=== PATIENT | male | born 1970 | race Caucasian/White ===

== ENCOUNTER 2018-06-02 06:45 | Day surgery (SDC) | payer OTHER ==
[2018-06-02] MEDS ORDERED: NACL 0.9% 1000 ML 1,000 ML IV SCH (08:00)
[2018-06-02] MEDS ORDERED: DIPRIVAN 10 MG/ML IV ONE ×2 (08:23)
[2018-06-02] MEDS ORDERED: VERSED ONE (08:23)
--- NOTE | 2018-06-02 08:57 | Anesthesia Day of Surgery ---
Anesthesia Day of Surgery - Day of Surgery Patient Examined: Yes Patient H&P Reviewed: Yes Patient is NPO: Yes
--- NOTE | 2018-06-02 08:59 | Anesthesia Consultation ---
Anesthesia Consult and Med Hx Date of service: 06/02/18 - Airway Anesthetic Teeth Evaluation: Good ROM Head & Neck: Adequate Mental/Hyoid Distance: Adequate Mallampati Class: Class III Intubation Access Assessment: Possibly Difficult - Pre-Operative Health Status ASA Pre-Surgery Classification: ASA3 Proposed Anesthetic Plan: MAC - Pulmonary Hx Smoking: Yes Hx Sleep Apnea: Yes - Cardiovascular System Hx Hypertension: Yes (high cholesterol) - Central Nervous System CVA: Yes - Endocrine Hx Liver Disease: Yes (fatty liver) - Other Systems Hx Obesity: Yes
--- NOTE | 2018-06-02 09:05 | Short Stay Summary ---
Short Stay Documentation - Allergies and Medications Current Medications: Allergies No Known Allergies Allergy (Verified 06/01/18 15:03) Home Medications Medication Instructions Recorded Confirmed Last Taken Type Gabapentin 300 mg PO DAILY 06/01/18 06/01/18 Unknown History Lisinopril 1 tab PO DAILY 06/01/18 06/01/18 Unknown History amLODIPine 1 tab PO DAILY 06/01/18 06/01/18 Unknown History Active Medications Sodium Chloride (Nacl 0.9% 1000 Ml) 1,000 mls @ 50 mls/hr IV DIRECT MICHAEL - Brief post op/procedure progress note Date of procedure: 06/02/18 Pre-op diagnosis: 1. Colon cancer screening 2. Abdominal pain Post-op diagnosis: same (1. Colonoscopy aborted due to a poor prep 2. internal hemorrhoids) Procedure: Incomplete colonoscopy due to a poor prep Anesthesia: MAC Findings: as above Surgeon: KYLE PETERS Estimated blood loss: none Pathology: none Condition: stable - Disposition Condition at discharge: Stable Disposition: DC-01 TO HOME OR SELFCARE Short Stay Discharge Plan Activity: no restrictions Weight Bearing Status: Full Weight Bearing Diet: regular, low salt Follow up with: SUSAN CUNNINGHAM NP [Primary Care Provider] - 7 Days
[2018-06-02 09:30] VITALS: BP 104/68
[2018-06-02] MEDS ORDERED: WATER FOR IRRIG STERILE IR ONE (11:29)
== END 2018-06-02 06:46 | disposition home or self-care (01) ==
LOC: GIO 06:45
PROVIDERS: ATTEND Internal Medicine Gastroenterology
DX: K29.50 Unspecified chronic gastritis without bleeding (principal); K64.0 First degree hemorrhoids; K21.9 Gastro-esophageal reflux disease without esophagitis; D13.1 Benign neoplasm of stomach; R19.7 Diarrhea, unspecified; K92.1 Melena; R10.30 Lower abdominal pain, unspecified; F17.210 Nicotine dependence, cigarettes, uncomplicated; E78.00 Pure hypercholesterolemia, unspecified; G47.30 Sleep apnea, unspecified; M19.90 Unspecified osteoarthritis, unspecified site; F32.9 Major depressive disorder, single episode, unspecified; F41.9 Anxiety disorder, unspecified; R97.0 Elevated carcinoembryonic antigen [CEA]; I10 Essential (primary) hypertension; E66.9 Obesity, unspecified; Z68.31 Body mass index [BMI] 31.0-31.9, adult; Z90.49 Acquired absence of other specified parts of digestive tract; Z79.01 Long term (current) use of anticoagulants; Z79.899 Other long term (current) drug therapy; Z98.890 Other specified postprocedural states; Z86.73 Personal history of transient ischemic attack (TIA), and cerebral infarction without residual deficits
CPT/HCPCS: 43239; 45378; 88305; 88342; J2250; J2704; J7030

== ENCOUNTER 2019-03-07 13:15 | Inpatient (IN) | payer OTHER ==
[2019-03-07] MEDS ORDERED: NACL 0.9% 1000 ML 1,000 ML ONE (14:24)
[2019-03-07] MEDS ORDERED: HALDOL IM STA (14:49)
[2019-03-07] MEDS ORDERED: NACL 0.9% 1000 ML 2,000 ML IV ONE ×2 (14:49→16:14)
[2019-03-07] MEDS ORDERED: SUBLIMAZE IV ONE (14:49)
[2019-03-07] MEDS ORDERED: NACL 0.9% 1000 ML 1,000 ML IV ONE ×2 (14:49)
[2019-03-07] MEDS ORDERED: BOOSTRIX IM ONE (14:50)
--- NOTE | 2019-03-07 14:57 | Emergency Department Report ---
ED General Adult HPI - General Chief complaint: Syncope Stated complaint: SYNCOPE Time Seen by Provider: 03/07/19 14:20 Source: patient, family, EMS ( EMS documentation not available at time of chart dictation ), RN notes reviewed Mode of arrival: Wheelchair Limitations: No Limitations - History of Present Illness Initial comments: Primary care Dr.: Dr. Sanchez Past medical history: Obesity, cannabis use, patient cannot recall what his long-term outpatient prescriptions are He may have a history of hypertension. The patient presents to the ER today with a complaint of sudden painless loss of consciousness while taking a shower. He reports that over the past few days, he's had diffuse abdominal cramping, and he was seen at another hospital, and presumptively diagnosed with cannabinoid hyperemesis syndrome. He reports that he's been taking frequent hot baths and hot showers, to provide supportive control, and symptomatic relief. Today, he was taking a shower, and reportedly lost consciousness. Prior to the shower, he was not having any physical pain. After the shower, he has left flank pain, diffuse paraspinal pain, left elbow pain, and bilateral wrist pain. He can't recall his last tetanus vaccination. There is no midline cervical spine pain. He denies lower extremity weakness and numbness. In the emergency room, he was initially anxious, , and hypotensive. Symptoms improved with IV fluids and haloperidol. -: Gradual, Sudden Severity scale (0 -10): 0 Quality: aching Consistency: intermittent Improves with: other Worsens with: other - Related Data Home Medications Medication Instructions Recorded Confirmed Last Taken Lisinopril 1 tab PO DAILY 06/01/18 03/07/19 03/07/19 amLODIPine 1 tab PO DAILY 06/01/18 03/07/19 03/07/19 Allergies Allergy/AdvReac Type Severity Reaction Status Date / Time No Known Allergies Allergy Verified 06/01/18 15:03 ED Review of Systems ROS: Stated complaint: SYNCOPE Other details as noted in HPI Constitutional: malaise, weakness Eyes: denies: eye discharge ENT: denies: congestion Respiratory: denies: wheezing Cardiovascular: syncope Gastrointestinal: abdominal pain, nausea, vomiting Genitourinary: denies: dysuria Musculoskeletal: back pain, arthralgia, myalgia Skin: lesions Neurological: weakness Psychiatric: anxiety ED Past Medical Hx - Past Medical History Previous Medical History?: Yes Hx Hypertension: Yes (high cholesterol) Hx GERD: Yes Hx Liver Disease: Yes (fatty liver) Hx Arthritis: Yes - Surgical History Past Surgical History?: Yes Hx Appendectomy: Yes - Social History Smoking Status: Current Every Day Smoker - Medications Home Medications: Home Medications Medication Instructions Recorded Confirmed Last Taken Type Lisinopril 1 tab PO DAILY 06/01/18 03/07/19 03/07/19 History amLODIPine 1 tab PO DAILY 06/01/18 03/07/19 03/07/19 History ED Physical Exam - General Limitations: No Limitations General appearance: alert, anxious, obese - Head Head exam: Present: atraumatic, normocephalic - Eye Eye exam: Present: normal appearance, PERRL, EOMI, other (visual acuity intact to finger counting and color perception at a close distance). Absent: nystagmus - ENT ENT exam: Present: normal exam, normal orophraynx, mucous membranes moist, normal external ear exam - Neck Neck exam: Present: normal inspection, full ROM. Absent: tenderness, meningismus - Respiratory Respiratory exam: Present: normal lung sounds bilaterally, chest wall tenderness, other (there is left lateral distal hemithorax tenderness, with ecc hymosis noted). Absent: respiratory distress - Cardiovascular Cardiovascular Exam: Present: regular rate, normal rhythm, normal heart sounds. Absent: bradycardia, tachycardia, irregular rhythm, systolic murmur, diastolic murmur, rubs, gallop - GI/Abdominal GI/Abdominal exam: Present: soft, tenderness (there is mild diffuse abdominal tenderness noted, with no rebound, guarding or peritoneal signs). Absent: guarding, rebound, rigid - Rectal Rectal exam: Present: deferred - Extremities Exam Extremities exam: Present: normal inspection (there is no ulnar styloid process tenderness noted. There is no snuffbox tenderness noted. Abrasion noted to right wrist. Abrasion noted to left elbow.), full ROM, other (2+ pulses noted in the bilateral upper, lower extremities. There is no long bone tenderness. Musculoskeletal compartments are soft. The pelvis is stable.) - Back Exam Back exam: Present: normal inspection, full ROM, paraspinal tenderness. Absent: tenderness, CVA tenderness (R) - Neurological Exam Neurological exam: Present: alert, other (there is no facial droop. The tongue is midline. Extraocular movements are intact bilaterally. Patient speaking in full complete sentences. Shoulder shrug is intact bilaterally. Hearing is grossly intact bilaterally. Visual acuity intact to finger counting and color perception at a close distance. 5/5 strength 4 extremities. Sensation intact to light touch in 4 extremities.) - Psychiatric Psychiatric exam: Present: anxious - Skin Skin exam: Present: warm, abrasion, ecchymosis ED Course Vital Signs 03/07/19 03/07/19 03/07/19 13:58 14:12 14:27 Temperature 97.6 F Pulse Rate 103 H 97 H Respiratory 18 25 H 18 Rate Blood Pressure 88/60 Blood Pressure [Right] O2 Sat by Pulse 96 Oximetry 03/07/19 03/07/19 14:28 17:33 Temperature 98.4 F Pulse Rate 93 H 66 Respiratory 20 20 Rate Blood Pressure Blood Pressure 86/52 105/58 [Right] O2 Sat by Pulse 99 96 Oximetry - Reevaluation(s) Reevaluation #1: 03/07/19 16:12 Original diagnosis, including not limited to: Orthostasis, vagal event, dehydration, structural cardiac disease, superficial contusions and abrasions, intra-abdominal injury, intracranial injury Assessment and plan: 48-year-old gentleman, with reported history of abdominal pain, nausea and vomiting, likely secondary to cannabinoid hyperemesis syndrome, who was in the shower for symptomatically relief, who then had loss of consciousness, likely a vagal event, with hypotension initially, now improving. Blood pressure in the 80s initially, now in the low 100s. He is receiving 4 L of IV fluids. He received pain medication, and haloperidol. X-ray show no acute fracture. He reports no DVT or pulmonary embolism risk factors, and he is low risk by well's criteria. Laboratory studies demonstrate dehydration, acute renal insufficiency, type II troponin leak, metabolic acidosis. Suspect prerenal insufficiency, likely secondary to intractable nausea and vomiting, likely secondary to presumed cannabinoid hyperemesis syndrome.Patient is clinically sober at this time. The cervical spine is cleared through nexus and brazilian c spine rule CT scan brain, abdomen pelvis pending at this time. Patient meets criteria for hospitalization for the aforementioned derangement. Reevaluation #2: 03/07/19 16:14 Leukocytosis is reviewed and appreciated. Patient demonstrates signs of he moconcentration, and this is likely a stress reaction. Do not suspect acute bacterial illness at this time, therefore, we will withhold antibiotic therapy at this time. Laboratory studies show renal insufficiency. This is likely prerenal renal insufficiency. Elevated troponin is reviewed and appreciated. This is most likely a type II troponin leak, likely secondary to the aforementioned. 03/07/19 18:02 Reevaluation #3: 03/07/19 18:[address] scan of the brain is negative for acute disease. Discussed plan of care for admission with patient who verbalizes understanding. He is amenable to this plan of care. The case is presented to Dr Ollie Moise who accepts to his service ED Medical Decision Making - Lab Data Result diagrams: 03/07/19 15:14 03/07/19 15:14 Vital Signs 03/07/19 03/07/19 03/07/19 13:58 14:12 14:27 Temperature 97.6 F Pulse Rate 103 H 97 H Respiratory 18 25 H 18 Rate Blood Pressure 88/60 Blood Pressure [Right] O2 Sat by Pulse 96 Oximetry 03/07/19 14:28 Temperature Pulse Rate 93 H Respiratory 20 Rate Blood Pressure Blood Pressure 86/52 [Right] O2 Sat by Pulse 99 Oximetry Lab Results 03/07/19 03/07/19 03/07/19 Range/Units 14:40 15:14 15:14 WBC 17.7 H (4.5-11.0) K/mm3 RBC 6.80 H (3.65-5.03) M/mm3 Hgb 19.6 H (11.8-15.2) gm/dl Hct 57.6 H (35.5-45.6) % MCV 85 (84-94) fl MCH 29 (28-32) pg MCHC 34 (32-34) % RDW 14.4 (13.2-15.2) % Plt Count 392 (140-440) K/mm3 Lymph % (Auto) 9.7 L (13.4-35.0) % [place] % (Auto) 9.3 H (0.0-7.3) % Eos % (Auto) 0.2 (0.0-4.3) % Baso % (Auto) 0.4 (0.0-1.8) % Lymph # 1.7 (1.2-5.4) K/mm3 [place] # 1.6 H (0.0-0.8) K/mm3 Eos # 0.0 (0.0-0.4) K/mm3 Baso # 0.1 (0.0-0.1) K/mm3 Seg Neutrophils % 80.4 H (40.0-70.0) % Seg Neutrophils # 14.2 H (1.8-7.7) K/mm3 PT (12.2-14.9) Sec. INR (0.87-1.13) APTT (24.2-36.6) Sec. Sodium 136 L (137-145) mmol/L Potassium 3.3 L (3.6-5.0) mmol/L Chloride 93.4 L (98-107) mmol/L Carbon Dioxide 14 L (22-30) mmol/L Anion Gap 32 mmol/L BUN 49 H (9-20) mg/dL Creatinine 6.7 H (0.8-1.5) mg/dL Estimated GFR 9 ml/min BUN/Creatinine Ratio 7 % Glucose 120 H (75-100) mg/dL POC Glucose 116 H (70-105) Calcium 10.1 (8.4-10.2) mg/dL Magnesium (1.7-2.3) mg/dL Total Bilirubin 1.00 (0.1-1.2) mg/dL ALT 32 (7-56) units/L Alkaline Phosphatase 94 (35-129) units/L Troponin T 0.064 H (0.00-0.029) ng/mL Total Protein 9.2 H (6.3-8.2) g/dL Albumin 5.2 H (3.9-5) g/dL Albumin/Globulin Ratio 1.3 % Triglycerides 286 H (2-149) mg/dL Cholesterol 272 H (50-199) mg/dL LDL Cholesterol Direct 201 H (50-130) mg/dL HDL Cholesterol 34 L (40-59) mg/dL Cholesterol/HDL Ratio 8.00 % Lipase 38 (13-60) units/L Salicylates (2.8-20.0) mg/dL Plasma/Serum Alcohol (0-0.07) % 03/07/19 03/07/19 03/07/19 Range/Units 15:14 15:14 15:14 WBC (4.5-11.0) K/mm3 RBC (3.65-5.03) M/mm3 Hgb (11.8-15.2) gm/dl Hct (35.5-45.6) % MCV (84-94) fl MCH (28-32) pg MCHC (32-34) % RDW (13.2-15.2) % Plt Count (140-440) K/mm3 Lymph % (Auto) (13.4-35.0) % [place] % (Auto) (0.0-7.3) % Eos % (Auto) (0.0-4.3) % Baso % (Auto) (0.0-1.8) % Lymph # (1.2-5.4) K/mm3 [place] # (0.0-0.8) K/mm3 Eos # (0.0-0.4) K/mm3 Baso # (0.0-0.1) K/mm3 Seg Neutrophils % (40.0-70.0) % Seg Neutrophils # (1.8-7.7) K/mm3 PT 14.3 (12.2-14.9) Sec. INR 1.14 H (0.87-1.13) APTT 33.9 (24.2-36.6) Sec. Sodium (137-145) mmol/L Potassium (3.6-5.0) mmol/L Chloride (98-107) mmol/L Carbon Dioxide (22-30) mmol/L Anion Gap mmol/L BUN (9-20) mg/dL Creatinine (0.8-1.5) mg/dL Estimated GFR ml/min BUN/Creatinine Ratio % Glucose (75-100) mg/dL POC Glucose (70-105) Calcium (8.4-10.2) mg/dL Magnesium 3.00 H (1.7-2.3) mg/dL Total Bilirubin (0.1-1.2) mg/dL ALT (7-56) units/L Alkaline Phosphatase (35-129) units/L Troponin T (0.00-0.029) ng/mL Total Protein (6.3-8.2) g/dL Albumin (3.9-5) g/dL Albumin/Globulin Ratio % Triglycerides (2-149) mg/dL Cholesterol (50-199) mg/dL LDL Cholesterol Direct (50-130) mg/dL HDL Cholesterol (40-59) mg/dL Cholesterol/HDL Ratio % Lipase (13-60) units/L Salicylates (2.8-20.0) mg/dL Plasma/Serum Alcohol < 0.01 (0-0.07) % 03/07/19 Range/Units 15:14 WBC (4.5-11.0) K/mm3 RBC (3.65-5.03) M/mm3 Hgb (11.8-15.2) gm/dl Hct (35.5-45.6) % MCV (84-94) fl MCH (28-32) pg MCHC (32-34) % RDW (13.2-15.2) % Plt Count (140-440) K/mm3 Lymph % (Auto) (13.4-35.0) % [place] % (Auto) (0.0-7.3) % Eos % (Auto) (0.0-4.3) % Baso % (Auto) (0.0-1.8) % Lymph # (1.2-5.4) K/mm3 [place] # (0.0-0.8) K/mm3 Eos # (0.0-0.4) K/mm3 Baso # (0.0-0.1) K/mm3 Seg Neutrophils % (40.0-70.0) % Seg Neutrophils # (1.8-7.7) K/mm3 PT (12.2-14.9) Sec. INR (0.87-1.13) APTT (24.2-36.6) Sec. Sodium (137-145) mmol/L Potassium (3.6-5.0) mmol/L Chloride (98-107) mmol/L Carbon Dioxide (22-30) mmol/L Anion Gap mmol/L BUN (9-20) mg/dL Creatinine (0.8-1.5) mg/dL Estimated GFR ml/min BUN/Creatinine Ratio % Glucose (75-100) mg/dL POC Glucose (70-105) Calcium (8.4-10.2) mg/dL Magnesium (1.7-2.3) mg/dL Total Bilirubin (0.1-1.2) mg/dL ALT (7-56) units/L Alkaline Phosphatase (35-129) units/L Troponin T (0.00-0.029) ng/mL Total Protein (6.3-8.2) g/dL Albumin (3.9-5) g/dL Albumin/Globulin Ratio % Triglycerides (2-149) mg/dL Cholesterol (50-199) mg/dL LDL Cholesterol Direct (50-130) mg/dL HDL Cholesterol (40-59) mg/dL Cholesterol/HDL Ratio % Lipase (13-60) units/L Salicylates < 0.3 L (2.8-20.0) mg/dL Plasma/Serum Alcohol (0-0.07) % - EKG Data -: EKG Interpreted by Me EKG shows normal: sinus rhythm Rate: normal - EKG Data 03/07/19 16:14 There is no prior EKG available for comparison. This is a sinus rhythm, 81 bpm, motion artifact, there is high left ventricular voltage, the QTC is within normal limits, there is nonspecific ST abnormality, there is no endorsement of chest pain, the EKG is abnormal, the EKG is not consistent with ST elevation myocardial infarction. - Radiology Data Radiology results: pending, report reviewed, image reviewed Critical care attestation.: If time is entered above; I have spent that time in minutes in the direct care of this critically ill patient, excluding procedure time. ED Disposition Clinical Impression: TOPHER (acute kidney injury), History of syncope, Metabolic acidosis, Cannabinoid hyperemesis syndrome Disposition: -09 OP ADMIT IP TO THIS HOSP Is pt being admited?: Yes Condition: Serious Referrals: PRIMARY CARE, [Primary Care Provider] - 3-5 Days
[2019-03-07 15:35] LABS: Basophils # (Auto) 0.1 K/mm3 (0.0-0.1); Basophils % (Auto) 0.4 % (0.0-1.8); Eosinophils % (Auto) 0.2 % (0.0-4.3); Hematocrit 57.6 % (35.5-45.6); Hemoglobin 19.6 gm/dl (11.8-15.2); Lymphocytes # (Auto) 1.7 K/mm3 (1.2-5.4); Lymphocytes % (Auto) 9.7 % (13.4-35.0); Mean Corpuscular HGB Conc 34 % (32-34); Mean Corpuscular Volume 85 fl (84-94); Monocytes # (Auto) 1.6 K/mm3 (0.0-0.8); Monocytes % (Auto) 9.3 % (0.0-7.3); Platelet Count 392 K/mm3 (140-440); Red Cell Distribution Width 14.4 % (13.2-15.2)
--- NOTE | 2019-03-07 15:46 | XRay Report ---
CHEST 1 VIEW INDICATION / CLINICAL INFORMATION: syncop. COMPARISON: None available. FINDINGS: SUPPORT DEVICES: None. HEART / MEDIASTINUM: No significant abnormality. LUNGS / PLEURA: No significant pulmonary or pleural abnormality. No pneumothorax. ADDITIONAL FINDINGS: No significant additional findings. IMPRESSION: No acute pulmonary or pleural abnormality. Signer Name: Leodan Siu MD FACR Signed: 03/07/2019 3:42 PM Workstation Name: [id number]
--- NOTE | 2019-03-07 15:47 | XRay Report ---
LEFT ELBOW 3 VIEWS INDICATION / CLINICAL INFORMATION: elbow pain fall. COMPARISON: None available. FINDINGS: Bone density adjacent to the medial epicondyle is probably chronic. No other significant skeletal abn ormality. Signer Name: Leodan Siu MD FACOrtiz Signed: 03/07/2019 3:43 PM Workstation Name: [id number]
[2019-03-07 15:48] LABS: INR 1.14 (0.87-1.13); Partial Thromboplastin Time 33.9 Sec. (24.2-36.6)
--- NOTE | 2019-03-07 15:48 | XRay Report ---
BILATERAL WRIST 3 VIEWS INDICATION / CLINICAL INFORMATION: wrist pain fall. COMPARISON: None available. FINDINGS: Ulnar styloid process fracture on the righ which may be old. No other significant skeletal abnormalit y. T Signer Name: Leodan Siu MD FACOrtiz Signed: 03/07/2019 3:44 PM Workstation Name: [id number]
[2019-03-07 15:55] LABS: Albumin 5.2 g/dL (3.9-5); Calcium 10.1 mg/dL (8.4-10.2)
[2019-03-07 17:29] LABS: Uric Acid 14.3 mg/dL (3.5-7.6)
[2019-03-07] MEDS: KCL 10MEQ/100ML 10 MEQ/100 ML BAG IV SCH ×2 (17:33→18:54)
--- NOTE | 2019-03-07 17:46 | Cat Scan Report ---
CT HEAD WITHOUT CONTRAST INDICATION : syncope. TECHNIQUE: Axial, coronal and sagittal CT imaging was performed from the skull apex through the skul l base without contrast. All CT scans at this location are performed using CT dose reduction for ALA RA by means of automated exposure control. COMPARISON: None available. FINDINGS: PARENCHYMA: No mass, midline shift, hemorrhage, extraaxial collection or acute territorial infarctio n. VENTRICLES: Symmetric and normal in size. SOFT TISSUES: Soft tissues including the orbits appear normal. BONES: No acute osseous abnormality. SINUSES: Bilateral maxillary sinus polyps/retention cysts measure up to 1.4 cm. No additional signifi cant abnormality of the visualized sinuses or mastoid air cells. ADDITIONAL FINDINGS: None. IMPRESSION: No acute intracranial abnormality. Signer Name: Mike Aguillon MD Signed: 03/07/2019 5:41 PM Workstation Name: [id number]
--- NOTE | 2019-03-07 19:09 | Cat Scan Report ---
CT abdomen pelvis wo con INDICATION: Fall, back pain. TECHNIQUE: All CT scans at this location are performed using the following dose modulation technique: Automated exposure control. Helical slices were obtained through the abdomen and pelvis. No contrast is adminis tered. COMPARISON: None available. FINDINGS: Abdomen: There is some mild parenchymal density in the right lower lobe aeration and likely represent s atelectasis or scar There is mild fatty infiltration of the liver. Spleen, pancreas, adrenal glands, and small bowel are unremarkable. There are no renal or ureteral calculi. There is no hydronephrosis. There is no free air or fluid in the abdomen or pelvis. There are no abnormal fluid collections. The abdominal aorta is normal in diameter. Mild atherosclerotic calcifications are noted in the aorta and iliac arteries. Pelvis: There is no obstruction or inflammation. There are no abnormal fluid collections. There is no adenopathy. Review of bone windows, no acute osseous abnormalities are seen. There is mild degenerative change no alanis in the spine. IMPRESSION: 1. There is no obstruction, inflammation, or free air. There is no intra-abdominal organ injury. Ther e is no fluid. There are no abnormal fluid collections. Signer Name: Jose Gupta MD Signed: 03/07/2019 7:05 PM Workstation Name: [email or web address] [id number]
[2019-03-07] MEDS ORDERED: SODIUM CHLORIDE FLUSH SYRINGE 10 ML IV PRN (20:19)
[2019-03-07] MEDS ORDERED: PHENERGAN PR PRN (20:19)
[2019-03-07] MEDS ORDERED: TYLENOL PO PRN (20:19)
[2019-03-07] MEDS ORDERED: ZOFRAN IV PRN (20:19)
[2019-03-07] MEDS ORDERED: DILAUDID IV PRN (20:19)
[2019-03-07] MEDS ORDERED: REGLAN IV PRN (20:19)
--- NOTE | 2019-03-07 20:19 | History and Physical Report ---
History of Present Illness Date of examination: 03/07/19 Date of admission: 03/07/19 18:01 Chief complaint: Syncope this morning Persistent vomiting for 48 hours History of present illness: 48-year-old male with history of hypertension apparently passed out while in the shower. Patient has been having severe nausea and vomiting for the last 48 hours. Patient did 2 ounces of marijuana on Wednesday and passed out after that. Since then patient has been having diffuse abdominal cramping and vomiting. Patient went to the facility and was diagnosed with cannabinoid hyperemesis syndrome. Was discharged. After the shower areas left flank pain and diffuse back pain and bilateral wrist pain. No extremity weakness. Patient anxious and hypotensive at the time of admission to the emergency room. No fever or chills. Past Medical History Previous Medical History?: Yes Hypertension: Yes (high cholesterol) GERD: Yes Liver Disease: Yes (fatty liver) Arthritis: Yes Surgical History Past Surgical History?: Yes Appendectomy: Yes Social History Smoking Status: Current Every Day Smoker Marijuana dependence Family history Htn - Medications Home Medications: Home Medications Medication Instructions Recorded Confirmed Last Taken Type Lisinopril 1 tab PO DAILY 06/01/18 03/07/19 03/07/19 History amLODIPine 1 tab PO DAILY 06/01/18 03/07/19 03/07/19 History Review of Systems ROS: Stated complaint: SYNCOPE Other details as noted in HPI Constitutional: malaise, weakness Eyes: denies: eye discharge ENT: denies: congestion Respiratory: denies: wheezing Cardiovascular: syncope Gastrointestinal: abdominal pain, nausea, vomitingx multiple times Genitourinary: denies: dysuria Musculoskeletal: back pain, arthralgia, myalgia Skin: lesions Neurological: weakness Psychiatric: anxiety Medications and Allergies Allergies Allergy/AdvReac Type Severity Reaction Status Date / Time No Known Allergies Allergy Verified 06/01/18 15:03 Home Medications Medication Instructions Recorded Confirmed Last Taken Type Lisinopril 1 tab PO DAILY 06/01/18 03/07/19 03/07/19 History amLODIPine 1 tab PO DAILY 06/01/18 03/07/19 03/07/19 History Exam - Constitutional Vitals: Temp Pulse Resp BP Pulse Ox 98.7 F 73 15 112/71 100 03/07/19 20:11 03/07/19 20:01 03/07/19 20:01 03/07/19 20:01 03/07/19 20:01 General appearance: Present: no acute distress, well-nourished - EENT Eyes: Present: PERRL ENT: hearing intact, clear oral mucosa - Neck Neck: Present: supple, normal ROM - Respiratory Respiratory effort: normal Respiratory: bilateral: CTA - Cardiovascular Heart rate: 88 Rhythm: regular Heart Sounds: Present: S1 & S2. Absent: rub, click - Extremities Extremities: no ischemia, pulses intact, pulses symmetrical, No edema Peripheral Pulses: within normal limits - Abdominal General gastrointestinal: Present: soft, non-tender, non-distended, normal bowel sounds Male genitourinary: Present: normal - Integumentary Integumentary: Present: clear, warm, dry - Musculoskeletal Musculoskeletal: gait normal, strength equal bilaterally - Psychiatric Psychiatric: appropriate mood/affect, intact judgment & insight - Neurologic Neurologic: CNII-XII intact, moves all extremities - Allied Health Allied health notes reviewed: nursing Results - Labs CBC & Chem 7: 03/07/19 15:14 03/07/19 15:14 Labs: Laboratory Last Values WBC 17.7 K/mm3 (4.5-11.0) H 03/07/19 15:14 RBC 6.80 M/mm3 (3.65-5.03) H 03/07/19 15:14 Hgb 19.6 gm/dl (11.8-15.2) H 03/07/19 15:14 Hct 57.6 % (35.5-45.6) H 03/07/19 15:14 MCV 85 fl (84-94) 03/07/19 15:14 MCH 29 pg (28-32) 03/07/19 15:14 MCHC 34 % (32-34) 03/07/19 15:14 RDW 14.4 % (13.2-15.2) 03/07/19 15:14 Plt Count 392 K/mm3 (140-440) 03/07/19 15:14 Lymph % (Auto) 9.7 % (13.4-35.0) L 03/07/19 15:14 Dunn % (Auto) 9.3 % (0.0-7.3) H 03/07/19 15:14 Eos % (Auto) 0.2 % (0.0-4.3) 03/07/19 15:14 Baso % (Auto) 0.4 % (0.0-1.8) 03/07/19 15:14 Lymph # 1.7 K/mm3 (1.2-5.4) 03/07/19 15:14 Dunn # 1.6 K/mm3 (0.0-0.8) H 03/07/19 15:14 Eos # 0.0 K/mm3 (0.0-0.4) 03/07/19 15:14 Baso # 0.1 K/mm3 (0.0-0.1) 03/07/19 15:14 Seg Neutrophils % 80.4 % (40.0-70.0) H 03/07/19 15:14 Seg Neutrophils # 14.2 K/mm3 (1.8-7.7) H 03/07/19 15:14 PT 14.3 Sec. (12.2-14.9) 03/07/19 15:14 INR 1.14 (0.87-1.13) H 03/07/19 15:14 APTT 33.9 Sec. (24.2-36.6) 03/07/19 15:14 Sodium 136 mmol/L (137-145) L 03/07/19 15:14 Potassium 3.3 mmol/L (3.6-5.0) L 03/07/19 15:14 Chloride 93.4 mmol/L (98-107) L 03/07/19 15:14 Carbon Dioxide 14 mmol/L (22-30) L 03/07/19 15:14 Anion Gap 32 mmol/L 03/07/19 15:14 BUN 49 mg/dL (9-20) H 03/07/19 15:14 Creatinine 6.7 mg/dL (0.8-1.5) H 03/07/19 15:14 Estimated GFR 9 ml/min 03/07/19 15:14 BUN/Creatinine Ratio 7 % 03/07/19 15:14 Glucose 120 mg/dL (75-100) H 03/07/19 15:14 POC Glucose 116 (70-105) H 03/07/19 14:40 Uric Acid 14.3 mg/dL (3.5-7.6) H 03/07/19 16:31 Calcium 10.1 mg/dL (8.4-10.2) 03/07/19 15:14 Magnesium 3.00 mg/dL (1.7-2.3) H 03/07/19 15:14 Total Bilirubin 1.00 mg/dL (0.1-1.2) 03/07/19 15:14 AST 25 units/L (5-40) 03/07/19 15:14 ALT 32 units/L (7-56) 03/07/19 15:14 Alkaline Phosphatase 94 units/L (35-129) 03/07/19 15:14 Total Creatine Kinase 650 units/L (55-170) H 03/07/19 16:31 Troponin T 0.057 ng/mL (0.00-0.029) H 03/07/19 18:00 Total Protein 9.2 g/dL (6.3-8.2) H 03/07/19 15:14 Albumin 5.2 g/dL (3.9-5) H 03/07/19 15:14 Albumin/Globulin Ratio 1.3 % 03/07/19 15:14 Triglycerides 286 mg/dL (2-149) H 03/07/19 15:14 Cholesterol 272 mg/dL (50-199) H 03/07/19 15:14 LDL Cholesterol Direct 201 mg/dL (50-130) H 03/07/19 15:14 HDL Cholesterol 34 mg/dL (40-59) L 03/07/19 15:14 Cholesterol/HDL Ratio 8.00 % 03/07/19 15:14 Lipase 38 units/L (13-60) 03/07/19 15:14 TSH 3.490 mlU/mL (0.270-4.200) 03/07/19 16:31 Salicylates < 0.3 mg/dL (2.8-20.0) L 03/07/19 15:14 Acetaminophen < 5.0 ug/mL (10.0-30.0) L 03/07/19 15:14 Plasma/Serum Alcohol < 0.01 % (0-0.07) 03/07/19 15:14 - Imaging and Cardiology EKG: report reviewed (sinus rhythm /heart rate of 91/m, probable left atrial enlargement. Repolarization abnormality suggests ischemia) CT scan - abdomen: report reviewed Imaging and Cardiology: Abdominal CAT scan and pelvis IMPRESSION: 1. There is no obstruction, inflammation, or free air. There is no intra- abdominal organ injury. There is no fluid. There are no abnormal fluid collections. Signer Name: Jose Gupta MD Bilateral wrist x-ray FINDINGS: Ulnar styloid process fracture on the righ which may be old. No other s ignificant skeletal abnormality Chest x-ray and elbow x-ray--no acute findings Assessment and Plan Advance Directives: Yes (full code) VTE prophylaxis?: Chemical Plan of care discussed with patient/family: Yes - Patient Problems (1) TOPHER (acute kidney injury) Current Visit: Yes Status: Acute Plan to address problem: Patient has baseline normal creatinine Had been vomiting for the last 48 hours Clinical picture consistent with ATN IV fluids for now Nephrology consult (2) Syncope and collapse Current Visit: Yes Status: Acute Plan to address problem: Secondary to volume depletion No workup for syncope Patient is orthostatic (3) Leukocytosis Current Visit: Yes Status: Acute Qualifiers: Leukocytosis type: unspecified Qualified Code(s): D72.829 - Elevated white blood cell count, unspecified Plan to address problem: Secondary to D margination Empiric Rocephin initiated May de-escalate (4) Cannabinoid hyperemesis syndrome Current Visit: Yes Status: Acute Plan to address problem: Patient has been doing cannabis and excess amounts--2 ounces per day Patient initiated on CIWA protocol Ativan every 1-2 hours by mouth Mental health consult (5) Marijuana dependence Current Visit: Yes Status: Chronic Plan to address problem: Mental health consult (6) Hypertension Current Visit: Yes Status: Chronic Qualifiers: Hypertension type: essential hypertension Qualified Code(s): I10 - Essential (primary) hypertension Plan to address problem: Continue antihypertensives (7) Acute gastritis Current Visit: Yes Status: Acute Qualifiers: Gastritis type: unspecified gastritis Gastritis bleeding: without bleeding Qualified Code(s): K29.00 - Acute gastritis without bleeding Plan to address problem: IV Protonix 40 mg every 12 (8) Hypokalemia Current Visit: Yes Status: Acute Plan to address problem: Supplemented (9) Nicotine dependence Current Visit: Yes Status: Chronic Qualifiers: Nicotine product type: cigarettes Plan to address problem: Counseled NicoDerm patch initiated (10) DVT prophylaxis Current Visit: Yes Status: Acute Plan to address problem: Lovenox 40 mg subcutaneous daily and GI prophylaxis
[2019-03-07] MEDS ORDERED: ATIVAN PO PRN ×2 (20:22)
[2019-03-07] MEDS: SODIUM CHLORIDE FLUSH SYRINGE 10 ML IV SCH (22:50)
[2019-03-07] MEDS: ROCEPHIN/NS 2 GM/100 ML 2 GM/100 ML BAG IV SCH (22:50)
[2019-03-07] MEDS: PEPCID IV SCH (22:50)
[2019-03-07] MEDS: HABITROL TD SCH (22:50)
[2019-03-07] MEDS: PROTONIX IV SCH (22:50)
[2019-03-08] MEDS: NACL 0.9% 1000 ML 1,000 ML IV SCH ×3 (01:30→20:33)
[2019-03-08 01:58] LABS: Bacteria,Urine 1+ /HPF (Negative); Bilirubin,Urine NEG (Negative); Blood,Urine MOD (Negative); Color,Urine Yellow (Yellow); Hyaline Casts,Urine 28 /LPF; Mucus,Urine 1+ /HPF; Urobilinogen,Urine < 2.0 mg/dL (<2.0)
[2019-03-08 02:02] LABS: Amphetamine Screen,Urine PRESUMPTIVE NEGATIVE; Benzodiazepines Screen,Urine PRESUMPTIVE NEGATIVE; Cocaine Screen,Urine PRESUMPTIVE NEGATIVE; Methadone Screen,Urine PRESUMPTIVE NEGATIVE; Opiate Screen,Urine PRESUMPTIVE NEGATIVE
[2019-03-08 02:17] LABS: Osmolality,Urine 340 Mosm/kg
[2019-03-08 02:24] LABS: Cannabinoid Screen,Urine PRESUMPTIVE POSITIVE
[2019-03-08 04:58] LABS: Basophils % (Auto) 0.4 % (0.0-1.8); Eosinophils # (Auto) 0.1 K/mm3 (0.0-0.4); Eosinophils % (Auto) 0.9 % (0.0-4.3); Hematocrit 45.1 % (35.5-45.6); Lymphocytes # (Auto) 2.2 K/mm3 (1.2-5.4); Lymphocytes % (Auto) 17.4 % (13.4-35.0); Mean Corpuscular HGB Conc 33 % (32-34); Mean Corpuscular Volume 85 fl (84-94); Monocytes # (Auto) 1.1 K/mm3 (0.0-0.8); Platelet Count 269 K/mm3 (140-440); Red Blood Count 5.29 M/mm3 (3.65-5.03); Red Cell Distribution Width 14.4 % (13.2-15.2)
[2019-03-08 05:16] LABS: Albumin 3.5 g/dL (3.9-5); Calcium 7.9 mg/dL (8.4-10.2)
[2019-03-08] MEDS: ROCEPHIN/NS 2 GM/100 ML 2 GM/100 ML BAG IV SCH (09:23)
[2019-03-08] MEDS: PROTONIX IV SCH ×2 (09:23→22:12)
[2019-03-08] MEDS: PEPCID IV SCH (09:23)
[2019-03-08] MEDS: SODIUM CHLORIDE FLUSH SYRINGE 10 ML IV SCH ×2 (09:24→22:13)
[2019-03-08] MEDS: HABITROL TD SCH (09:24)
[2019-03-08] MEDS: PERCOCET 5/325 PO PRN ×2 (09:25→15:12)
--- NOTE | 2019-03-08 10:50 | Consultation ---
History of Present Illness - Reason for Consult Consult date: 03/08/19 - History of Present Illness This 48 year old male who presented to the hospital for a chief complaint of nausea and vomiting and syncope, passing out while taking a shower. Patient has history of marijuana abuse resulting cannabinoid hyperemesis syndrome and Hypertension but on admission patient was found to be Hypotensive. Pertinent labs revealed an elevated serum creatinine of 5.8 on admission. Baseline serum creatinine unknown. We are being consulted for management of this patient's Acute Renal Failure. Past History Past Medical History: hypertension, other (Marijuana use) Past Surgical History: No surgical history Social history: other (Marijuana abuse) Family history: no significant family history Medications and Allergies Allergies Allergy/AdvReac Type Severity Reaction Status Date / Time No Known Allergies Allergy Verified 06/01/18 15:03 Home Medications Medication Instructions Recorded Confirmed Last Taken Type Lisinopril 1 tab PO DAILY 06/01/18 03/07/19 03/07/19 History amLODIPine 1 tab PO DAILY 06/01/18 03/07/19 03/07/19 History Active Meds: Active Medications Acetaminophen (Tylenol) 650 mg PO Q4H PRN PRN Reason: Pain MILD(1-3)/Fever >100.5/ESPOSITO Hydromorphone HCl (Dilaudid) 1 mg IV Q3H PRN PRN Reason: Pain , Severe (7-10) Sodium Chloride (Nacl 0.9% 1000 Ml) 1,000 mls @ 125 mls/hr IV DIRECT MICHAEL Last Admin: 03/08/19 09:21 Dose: 125 mls/hr Documented by: Ceftriaxone Sodium (Rocephin/Ns 2 Gm/100 Ml) 2 gm in 100 mls @ 200 mls/hr IV Q24HR MICHAEL; Protocol Last Admin: 03/08/19 09:23 Dose: 200 mls/hr Documented by: Lorazepam (Ativan) 4 mg PO Q1H PRN PRN Reason: CIWA-Ar 16-25 Lorazepam (Ativan) 2 mg PO Q1H PRN PRN Reason: CIWA-Ar 8-15 Metoclopramide HCl (Reglan) 10 mg IV Q6H PRN PRN Reason: Nausea And Vomiting Nicotine (Habitrol) 14 mg TD QDAY MICHAEL Last Admin: 03/08/19 09:24 Dose: 14 mg Documented by: Ondansetron HCl (Zofran) 4 mg IV Q3H PRN PRN Reason: Nausea And Vomiting Oxycodone/Acetaminophen (Percocet 5/325) 1 tab PO Q6H PRN PRN Reason: Pain, Moderate (4-6) Last Admin: 03/08/19 09:25 Dose: 1 tab Documented by: Pantoprazole Sodium (Protonix) 40 mg IV BID [facility] Last Admin: 03/08/19 09:23 Dose: 40 mg Documented by: Pneumococcal Polyvalent Vaccine (Pneumovax 23) 0.5 ml IM .ONCE ONE Stop: 03/08/19 12:01 Promethazine HCl (Phenergan) 25 mg MA Q6H PRN PRN Reason: N/V IF NPO AND NO IV ACCESS Sodium Chloride (Sodium Chloride Flush Syringe 10 Ml) 10 ml IV BID [facility] Last Admin: 03/08/19 09:24 Dose: 10 ml Documented by: Sodium Chloride (Sodium Chloride Flush Syringe 10 Ml) 10 ml IV PRN PRN PRN Reason: LINE FLUSH Review of Systems Constitutional: fatigue, no weight loss, no weight gain, no fever, no chills, no sweats Ears, nose, mouth and throat: no ear pain, no ear discharge, no tinnitis, no decreased hearing, no nose pain, no nasal congestion, no nasal discharge, no sinus pressure Cardiovascular: syncope, no chest pain, no orthopnea, no palpitations, no rapid/irregular heart beat, no edema Respiratory: no cough with sputum, no excessive sputum, no hemoptysis, no shortness of breath, no dyspnea on exertion Gastrointestinal: nausea, vomiting, no abdominal pain, no diarrhea, no constipation, no change in bowel habits, no hematemesis Genitourinary Male: no dysuria, no hematuria, no flank pain, no discharge, no urinary frequency Musculoskeletal: no neck stiffness, no neck pain, no shooting arm pain, no arm numbness/tingling, no low back pain Integumentary: no rash, no pruritis, no redness, no sores, no wounds Neurological: no head injury, no transient paralysis, no paralysis, no weakness, no parathesias, no numbness, no tingling, no seizures Psychiatric: no anxiety, no memory loss, no change in sleep habits, no sleep d isturbances, no insomnia, no hypersomnia Endocrine: no cold intolerance, no heat intolerance, no polyphagia, no excessive thirst, no polydipsia, no polyuria Exam - Vital Signs Vital signs: Vital Signs Temp Pulse Resp BP Pulse Ox 97.6 F 103 H 18 88/60 96 03/07/19 13:58 03/07/19 13:58 03/07/19 13:58 03/07/19 13:58 03/07/19 13:58 - General Appearance General appearance: well-developed, appears stated age, fatigue EENT: ATNC, PERRL, hearing intact, vision intact Neck: Present: neck supple, trachea midline Respiratory: Clear to Ascultation Heart: regular, S1S2 Gastrointestinal: Present: normoactive bowel sounds Integumentary: warm and dry Neurologic: alert and oriented x3 Musculoskeletal: Present: other (No edema) Results - Lab Results 03/08/19 04:18 03/08/19 04:18 Most recent lab results Calcium 7.9 mg/dL (8.4-10.2) L 03/08/19 04:18 Magnesium 3.00 mg/dL (1.7-2.3) H 03/07/19 15:14 Urine Creatinine 245.0 mg/dL (0.1-20.0) H 03/08/19 01:31 Urine Sodium 58 mmol/L 03/08/19 01:31 Assessment and Plan Acute Renal Failure likely secondary to Prerenal Etiology secondary to Volume Depletion from N/V secondary to Drug Abuse: -Serum creatinine was 5.8 yesterday, now trend down to 3.5 on IV hydration -Continue on NS @ 125 ml/hr -Obtain renal ultrasound -Obtain urine lytes -Hold BP meds for now -Obtain daily weights -Avoid Nephrotoxic agents -Monitor renal function Cannabinoid hyperemesis syndrome Marijuana dependence -Psych consult -As per primary team Syncope: -On IVF Hypertension -Now with transient Hypotension -BP meds on hold for now
[2019-03-08] MEDS ORDERED: PNEUMOVAX 23 IM ONE (12:00)
--- NOTE | 2019-03-08 14:22 | Ultrasound Report ---
ULTRASOUND RENAL INDICATION / CLINICAL INFORMATION: Renal failure. COMPARISON: None available. FINDINGS: RIGHT KIDNEY: Length = 11.9 cm. [normal > 9 cm] - Parenchymal Thickness = 2.3 cm. [normal > 1.5 cm] - Echogenicity: Normal. - Hydronephrosis: None. - Cyst or mass: No significant abnormality. - Stones: None seen. LEFT KIDNEY: Length = 12.9 cm. [normal > 9 cm] - Parenchymal Thickness = 2.5 cm. [normal > 1.5 cm] - Echogenicity: Normal. - Hydronephrosis: None. - Cyst or mass: A 2.7 cm simple cyst is noted from the inferior pole - Stones: None seen. URINARY BLADDER: No significant abnormality. FREE FLUID: None. ADDITIONAL FINDINGS: None. IMPRESSION: 2.7 cm left renal cyst, otherwise, unremarkable exam. Signer Name: Cj Lowery Jr, MD Signed: 03/08/2019 2:18 PM Workstation Name: [id number]
[2019-03-08 15:35] LABS: Bilirubin,Urine NEG (Negative); Blood,Urine SM (Negative); Color,Urine Yellow (Yellow); Hyaline Casts,Urine 1 /LPF; Mucus,Urine FEW /HPF; Protein,Urine <15 mg/dL mg/dL (Negative); Urobilinogen,Urine < 2.0 mg/dL (<2.0)
--- NOTE | 2019-03-08 15:49 | Progress Note ---
Assessment and Plan Assessment and plan: Patient is a 48 yo man with a history of GERD, dyslipidemia, hypertension, chronic low back pains, tobacco dependency, daily marijuana usuge and cannabinoid hyperemesis syndrome who presented to [facility] ED after syncopal episode, preceded by warm sensation. Cr was 6.7 then 5.8 now 3.8 (1) TOPHER (acute kidney injury) Current Visit: Yes Status: Acute Plan to address problem: Patient has baseline normal creatinine Had been vomiting for the last 48 hours Clinical picture consistent with ATN IV fluids for now Nephrology consult (2) Syncope and collapse Current Visit: Yes Status: Acute Plan to address problem: Secondary to volume depletion No workup for syncope Patient is orthostatic (3) Leukocytosis Current Visit: Yes Status: Acute Qualifiers: Leukocytosis type: unspecified Qualified Code(s): D72.829 - Elevated white blood cell count, unspecified Plan to address problem: Secondary to D margination Empiric Rocephin initiated May de-escalate (4) Cannabinoid hyperemesis syndrome Current Visit: Yes Status: Acute Plan to address problem: Patient has been doing cannabis and excess amounts--2 ounces per day Patient initiated on CIWA protocol Ativan every 1-2 hours by mouth Mental health consult (5) Marijuana dependence Current Visit: Yes Status: Chronic Plan to address problem: Mental health consult (6) Hypertension Current Visit: Yes Status: Chronic Qualifiers: Hypertension type: essential hypertension Qualified Code(s): I10 - Essential (primary) hypertension Plan to address problem: Continue antihypertensives (7) Acute gastritis Current Visit: Yes Status: Acute Qualifiers: Gastritis type: unspecified gastritis Gastritis bleeding: without bleeding Qualified Code(s): K29.00 - Acute gastritis without bleeding Plan to address problem: IV Protonix 40 mg every 12 (8) Hypokalemia Current Visit: Yes Status: Acute Plan to address problem: Supplemented (9) Nicotine dependence Current Visit: Yes Status: Chronic Qualifiers: Nicotine product type: cigarettes Plan to address problem: Counseled NicoDerm patch initiated (10) DVT prophylaxis Current Visit: Yes Status: Acute Plan to address problem: Lovenox 40 mg subcutaneous daily and GI prophylaxis History Interval history: Patient was seen and examined. Follow-up on current diagnosis. No overnight events reported to me. Patient denies any chest pain, shortness breath, nausea/vomiting or severe headaches. Imaging, nursing note, chart, labs and old chart reviewed. Discussed with patient. Hospitalist Physical - Physical exam Narrative exam: Gen: WDWN, NAD, Awake, Alert, Orientated HEENT: NCAT, EOMI, PERRL, OP Clear Neck: supple, no adenopathy, no thyromegaly, no JVD CVS/Heart: RRR, normal S1S2, pulses present bilaterally Chest/Lungs: CTA B, Symmetrical chest expansion, good air entry bilaterally GI/Abdomen: soft, NTND, good bowel sounds, no guarding or rebound /Bladder: no suprapubic tenderness, no CVA or paraspinal tenderness Extermity/Skin: no c/c/e, no obvious rash MSK: FROM x 4 Neuro: CN 2-12 grossly intact, no new focal deficits Psych: calm - Constitutional Vitals: Temp Pulse Resp BP Pulse Ox 98.2 F 60 18 128/73 99 03/08/19 15:29 03/08/19 15:29 03/08/19 15:29 03/08/19 15:29 03/08/19 15:29 General appearance: Present: no acute distress, well-nourished Results - Labs CBC & Chem 7: 03/08/19 04:18 03/08/19 04:18 Labs: Laboratory Last Values WBC 12.6 K/mm3 (4.5-11.0) H 03/08/19 04:18 RBC 5.29 M/mm3 (3.65-5.03) H 03/08/19 04:18 Hgb 15.0 gm/dl (11.8-15.2) D 03/08/19 04:18 Hct 45.1 % (35.5-45.6) D 03/08/19 04:18 MCV 85 fl (84-94) 03/08/19 04:18 MCH 28 pg (28-32) 03/08/19 04:18 MCHC 33 % (32-34) 03/08/19 04:18 RDW 14.4 % (13.2-15.2) 03/08/19 04:18 Plt Count 269 K/mm3 (140-440) 03/08/19 04:18 Lymph % (Auto) 17.4 % (13.4-35.0) 03/08/19 04:18 [place] % (Auto) 9.0 % (0.0-7.3) H 03/08/19 04:18 Eos % (Auto) 0.9 % (0.0-4.3) 03/08/19 04:18 Baso % (Auto) 0.4 % (0.0-1.8) 03/08/19 04:18 Lymph # 2.2 K/mm3 (1.2-5.4) 03/08/19 04:18 [place] # 1.1 K/mm3 (0.0-0.8) H 03/08/19 04:18 Eos # 0.1 K/mm3 (0.0-0.4) 03/08/19 04:18 Baso # 0.0 K/mm3 (0.0-0.1) 03/08/19 04:18 Seg Neutrophils % 72.3 % (40.0-70.0) H 03/08/19 04:18 Seg Neutrophils # 9.1 K/mm3 (1.8-7.7) H 03/08/19 04:18 PT 14.3 Sec. (12.2-14.9) 03/07/19 15:14 INR 1.14 (0.87-1.13) H 03/07/19 15:14 APTT 33.9 Sec. (24.2-36.6) 03/07/19 15:14 Sodium 139 mmol/L (137-145) 03/08/19 04:18 Potassium 3.5 mmol/L (3.6-5.0) L 03/08/19 04:18 Chloride 107.9 mmol/L (98-107) H 03/08/19 04:18 Carbon Dioxide 16 mmol/L (22-30) L 03/08/19 04:18 Anion Gap 19 mmol/L 03/08/19 04:18 BUN 48 mg/dL (9-20) H 03/08/19 04:18 Creatinine 3.5 mg/dL (0.8-1.5) H 03/08/19 04:18 Estimated GFR 19 ml/min 03/08/19 04:18 BUN/Creatinine Ratio 14 % 03/08/19 04:18 Glucose 96 mg/dL (75-100) 03/08/19 04:18 POC Glucose 116 (70-105) H 03/07/19 14:40 Uric Acid 14.3 mg/dL (3.5-7.6) H 03/07/19 16:31 Calcium 7.9 mg/dL (8.4-10.2) L 03/08/19 04:18 Magnesium 3.00 mg/dL (1.7-2.3) H 03/07/19 15:14 Total Bilirubin 0.70 mg/dL (0.1-1.2) 03/08/19 04:18 AST 15 units/L (5-40) 03/08/19 04:18 ALT 19 units/L (7-56) 03/08/19 04:18 Alkaline Phosphatase 62 units/L (35-129) 03/08/19 04:18 Total Creatine Kinase 650 units/L (55-170) H 03/07/19 16:31 Troponin T 0.039 ng/mL (0.00-0.029) H D 03/07/19 20:02 Total Protein 6.1 g/dL (6.3-8.2) L D 03/08/19 04:18 Albumin 3.5 g/dL (3.9-5) L 03/08/19 04:18 Albumin/Globulin Ratio 1.3 % 03/08/19 04:18 Triglycerides 286 mg/dL (2-149) H 03/07/19 15:14 Cholesterol 272 mg/dL (50-199) H 03/07/19 15:14 LDL Cholesterol Direct 201 mg/dL (50-130) H 03/07/19 15:14 HDL Cholesterol 34 mg/dL (40-59) L 03/07/19 15:14 Cholesterol/HDL Ratio 8.00 % 03/07/19 15:14 Lipase 38 units/L (13-60) 03/07/19 15:14 TSH 3.490 mlU/mL (0.270-4.200) 03/07/19 16:31 Urine Color Yellow (Yellow) 03/08/19 01:31 Urine Turbidity Slightly-cloudy (Clear) 03/08/19 01:31 Urine pH 5.0 (5.0-7.0) 03/08/19 01:31 Ur Specific [place] 1.015 (1.003-1.030) 03/08/19 01:31 Urine Protein 100 mg/dl mg/dL (Negative) 03/08/19 01:31 Urine Glucose (UA) Neg mg/dL (Negative) 03/08/19 01:31 Urine Ketones Tr mg/dL (Negative) 03/08/19 01:31 Urine Blood Mod (Negative) 03/08/19 01:31 Urine Nitrite Neg (Negative) 03/08/19 01:31 Urine Bilirubin Neg (Negative) 03/08/19 01:31 Urine Urobilinogen < 2.0 mg/dL (<2.0) 03/08/19 01:31 Ur Leukocyte Esterase Neg (Negative) 03/08/19 01:31 Urine WBC (Auto) 6.0 /HPF (0.0-6.0) 03/08/19 01:31 Urine RBC (Auto) 3.0 /HPF (0.0-6.0) 03/08/19 01:31 U Epithel Cells (Auto) 1.0 /HPF (0-13.0) 03/08/19 01:31 Urine Bacteria (Auto) 1+ /HPF (Negative) 03/08/19 01:31 Hyaline Casts 28 /LPF 03/08/19 01:31 Urine Mucus 1+ /HPF 03/08/19 01:31 Urine Osmolality 340 Mosm/kg 03/08/19 01:31 Urine Creatinine 245.0 mg/dL (0.1-20.0) H 03/08/19 01:31 Urine Sodium 64 mmol/L 03/08/19 Unknown Urine Total Protein 13 mg/dL (5-11.8) H 03/08/19 Unknown Salicylates < 0.3 mg/dL (2.8-20.0) L 03/07/19 15:14 Urine Opiates Screen Presumptive negative 03/08/19 01:31 Urine Methadone Screen Presumptive negative 03/08/19 01:31 Acetaminophen < 5.0 ug/mL (10.0-30.0) L 03/07/19 15:14 Ur Barbiturates Screen Presumptive negative 03/08/19 01:31 Ur Phencyclidine Scrn Presumptive negative 03/08/19 01:31 Ur Amphetamines Screen Presumptive negative 03/08/19 01:31 U Benzodiazepines Scrn Presumptive negative 03/08/19 01:31 Urine Cocaine Screen Presumptive negative 03/08/19 01:31 U Marijuana (THC) Screen Presumptive positive 03/08/19 01:31 Drugs of Abuse Note Disclamer 03/08/19 01:31 Plasma/Serum Alcohol < 0.01 % (0-0.07) 03/07/19 15:14 Active Medications - Current Medications Current Medications: Generic Name Dose Route Start Last Admin Trade Name Dudleyq PRN Reason Stop Dose Admin Acetaminophen 650 mg 03/07/19 20:19 Tylenol PO Q4H PRN Pain MILD(1-3)/Fever >100.5/ESPOSITO Hydromorphone HCl 1 mg 03/07/19 20:19 Dilaudid IV Q3H PRN Pain , Severe (7-10) Sodium Chloride 1,000 mls @ 125 mls/hr 03/07/19 21:00 03/08/19 09:21 Nacl 0.9% 1000 Ml IV 125 mls/hr DIRECT MICHAEL Administration Ceftriaxone Sodium 2 gm in 100 mls @ 200 mls/hr 03/07/19 21:00 03/08/19 09:23 Rocephin/Ns 2 Gm/100 Ml IV 200 mls/hr Q24HR MICHAEL Administration Protocol Lorazepam 4 mg 03/07/19 20:22 Ativan PO Q1H PRN CIWA-Ar 16-25 Lorazepam 2 mg 03/07/19 20:22 Ativan PO Q1H PRN CIWA-Ar 8-15 Metoclopramide HCl 10 mg 03/07/19 20:19 Reglan IV Q6H PRN Nausea And Vomiting Nicotine 14 mg 03/07/19 21:00 03/08/19 09:24 Habitrol TD 14 mg QDAY MICHAEL Administration Ondansetron HCl 4 mg 03/07/19 20:19 Zofran IV Q3H PRN Nausea And Vomiting Oxycodone/Acetaminophen 1 tab 03/07/19 20:19 03/08/19 15:12 Percocet 5/325 PO 1 tab Q6H PRN Administration Pain, Moderate (4-6) Pantoprazole Sodium 40 mg 03/07/19 22:00 03/08/19 09:23 Protonix IV 40 mg BID IMCHAEL Administration Promethazine HCl 25 mg 03/07/19 20:19 Phenergan [place] Q6H PRN N/V IF NPO AND NO IV ACCESS Sodium Chloride 10 ml 03/07/19 22:00 03/08/19 09:24 Sodium Chloride Flush Syringe 10 Ml IV 10 ml BID MICHAEL Administration Sodium Chloride 10 ml 03/07/19 20:19 Sodium Chloride Flush Syringe 10 Ml IV PRN PRN LINE FLUSH Nutrition/Malnutrition Assess - Dietary Evaluation Nutrition/Malnutrition Findings: Nutrition Notes Start: 03/08/19 11:03 Freq: Status: Active Protocol: Document 03/08/19 11:04 CC (Rec: 03/08/19 11:24 CC [id number]) Co-Sign 03/08/19 11:04 LP Nutrition Notes Need for Assessment generated from: acute specialist,MST Initial or Follow up Assessment Current Diagnosis Acute Kidney Injury, Hypertension Other Pertinent Diagnosis previously dx Cannabinoid emesis syndrome, fatty liver disease Current Diet clear liquid diet Labs/Tests BUN 48, creat 3.5 Pertinent Medications reviewed Height 5 ft 11 in Weight 97.66 kg Usual Body Weight 115.9 kg [place] Body Weight (kg) 78.18 BMI 30.0 Intake Prior to Admission Poor Weight change and time frame 15.7%/5-6 months Weight Status Obese Subjective/Other Information Assement for MST score. Pt reported he has had N/V for awhile along with a poor appetite. Pt reported he has had unintentional wt loss over 20lbs starting in the late Spring/early Summer. Pt reported a UBW of about 255lbs (115.9kg). Percent of energy/protein needs met: 13% energy/ 7% protein Burn Absent Trauma Absent GI Symptoms Nausea,Vomiting Food Allergy No Current % PO Poor (25-49%) Minimum of two criteria Yes Energy Intake (non-severe) <75% Estimated Energy Requirement >7 days Interpretation of Weight Loss (severe) >10% in 6 months #2 Nutrition Diagnosis Malnutrition Etiology poor appetite As Evidenced by Signs and Symptoms <75% energy needs met >7 days, severe wt loss >10% in 6 months #1 Nutrition Diagnosis Inadequate oral intake Etiology poor appetite As Evidenced by Signs and Symptoms persistent N/V, poor intake of clear liquid diet Is patient on ventilator? No Is Patient Ambulatory and/or Out of Bed No REE-([facility]-confined to bed) [phone] [facility] Additional Notes PRO: 117-145g/day (1.2-1.5g/kg ) Fluid: 1ml/kcal Nutrition Intervention Change Diet Order: advance diet as tolerated to cardiac diet Add Supplement/Snack (indicate name/kcal Ensure clear daily /protein ) Provides kCal: 240 Provides Protein (gm) 8 Goal #1 Meet at least 80% energy and protein needs Anticipated Discharge Needs: Cardiac diet Follow-Up By: 03/10/19 Additional Comments F/U diet progression, po intake, appetite
[2019-03-08] MEDS ORDERED: BENADRYL IV PRN (21:32)
[2019-03-09] MEDS: PERCOCET 5/325 PO PRN (03:12)
[2019-03-09 06:19] LABS: BUN/Creatinine Ratio 17; Blood Urea Nitrogen 17 mg/dL (9-20); Calcium 8.3 mg/dL (8.4-10.2); Hemolysis Index 6
[2019-03-09] MEDS ORDERED: K-DUR PO ONE (09:00)
[2019-03-09] MEDS: HABITROL TD SCH (09:15)
[2019-03-09] MEDS: PROTONIX IV SCH (09:16)
[2019-03-09] MEDS: ROCEPHIN/NS 2 GM/100 ML 2 GM/100 ML BAG IV SCH (09:17)
[2019-03-09] MEDS: SODIUM CHLORIDE FLUSH SYRINGE 10 ML IV SCH (09:18)
--- NOTE | 2019-03-09 09:21 | Progress Note ---
Assessment and Plan Acute Renal Failure likely secondary to Prerenal Etiology secondary to Volume Depletion from N/V secondary to Drug Abuse: -resolved -will decrease IVF to 50 cc/h -Obtain renal ultrasound -Obtain urine lytes -Hold BP meds for now -Obtain daily weights -Avoid Nephrotoxic agents -Monitor renal function Cannabinoid hyperemesis syndrome Marijuana dependence -Psych consult -As per primary team Syncope: -On IVF Hypertension -decrease IVF as above -will start Amlodipine 5 mg will sign off, please reconsult if needed Kiran fong MD [phone] Subjective Date of service: 03/09/19 Principal diagnosis: TOPHER Interval history: nausea is better Objective - Vital Signs Vital signs: Vital Signs - 12hr 03/08/19 03/08/19 03/09/19 22:49 22:50 03:12 Temperature 97.7 F Pulse Rate 63 Pulse Rate [ 59 L Apical] Pulse Rate [ 59 L From Monitor] Respiratory 17 18 18 Rate Blood Pressure 107/63 O2 Sat by Pulse 95 93 Oximetry 03/09/19 03/09/19 04:23 08:22 Temperature 98.5 F 98.1 F Pulse Rate 61 66 Pulse Rate [ Apical] Pulse Rate [ From Monitor] Respiratory 18 18 Rate Blood Pressure 119/73 146/100 O2 Sat by Pulse 97 98 Oximetry - General Appearance General appearance: well-developed, well-nourished, obese EENT: ATNC, PERRL, mucous membranes moist Neck: no JVD, no carotid bruit Respiratory: Present: Clear to Ascultation. Absent: Rales, Ronchi Cardiology: regular, S1S2 Gastrointestinal: normoactive bowel sounds, no tenderness, no distended Integumentary: no rash, warm and dry Neurologic: no focal deficit, no asterixis, alert and oriented x3 Musculoskeletal: other (no edema in BLE) Psychiatric: mood/affect appropriate, cooperative - Lab 03/08/19 04:18 03/09/19 04:52 Most recent lab results Calcium 8.3 mg/dL (8.4-10.2) L 03/09/19 04:52 Magnesium 3.00 mg/dL (1.7-2.3) H 03/07/19 15:14 Urine Creatinine 245.0 mg/dL (0.1-20.0) H 03/08/19 01:31 Urine Sodium 64 mmol/L 03/08/19 Unknown Urine Total Protein 13 mg/dL (5-11.8) H 03/08/19 Unknown Medications & Allergies - Medications Allergies/Adverse Reactions: Allergies No Known Allergies Allergy (Verified 06/01/18 15:03) Home Medications: Home Medications Medication Instructions Recorded Confirmed Last Taken Type Lisinopril 1 tab PO DAILY 06/01/18 03/07/19 03/07/19 History amLODIPine 1 tab PO DAILY 06/01/18 03/07/19 03/07/19 History Active Medications: Generic Name Dose Route Start Last Admin Trade Name Freq PRN Reason Stop Dose Admin Acetaminophen 650 mg 03/07/19 20:19 Tylenol PO Q4H PRN Pain MILD(1-3)/Fever >100.5/ESPOSITO Diphenhydramine HCl 25 mg 03/08/19 21:32 03/08/19 22:12 Benadryl IV 25 mg Q6H PRN Administration Itching Hydromorphone HCl 1 mg 03/07/19 20:19 Dilaudid IV Q3H PRN Pain , Severe (7-10) Sodium Chloride 1,000 mls @ 125 mls/hr 03/07/19 21:00 03/08/19 20:33 Nacl 0.9% 1000 Ml IV 125 mls/hr DIRECT MICHAEL Administration Ceftriaxone Sodium 2 gm in 100 mls @ 200 mls/hr 03/07/19 21:00 03/09/19 09:17 Rocephin/Ns 2 Gm/100 Ml IV 200 mls/hr Q24HR MICHAEL Administration Protocol Lorazepam 4 mg 03/07/19 20:22 Ativan PO Q1H PRN CIWA-Ar 16-25 Lorazepam 2 mg 03/07/19 20:22 Ativan PO Q1H PRN CIWA-Ar 8-15 Metoclopramide HCl 10 mg 03/07/19 20:19 03/09/19 09:14 Reglan IV 10 mg Q6H PRN Administration Nausea And Vomiting Nicotine 14 mg 03/07/19 21:00 03/09/19 09:15 Habitrol TD 14 mg QDAY MICHAEL Administration Ondansetron HCl 4 mg 03/07/19 20:19 03/08/19 17:13 Zofran IV 4 mg Q3H PRN Administration Nausea And Vomiting Oxycodone/Acetaminophen 1 tab 03/07/19 20:19 03/09/19 03:12 Percocet 5/325 PO 1 tab Q6H PRN Administration Pain, Moderate (4-6) Pantoprazole Sodium 40 mg 03/07/19 22:00 03/09/19 09:16 Protonix IV 40 mg BID MICHAEL Administration Promethazine HCl 25 mg 03/07/19 20:19 Phenergan [place] Q6H PRN N/V IF NPO AND NO IV ACCESS Sodium Chloride 10 ml 03/07/19 22:00 03/09/19 09:18 Sodium Chloride Flush Syringe 10 Ml IV 10 ml BID MICHAEL Administration Sodium Chloride 10 ml 03/07/19 20:19 Sodium Chloride Flush Syringe 10 Ml IV PRN PRN LINE FLUSH
[2019-03-09 11:52] VITALS: BP 124/76
--- NOTE | 2019-03-09 11:57 | Discharge Summary ---
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 Cr was 6.7 then 5.8 now 3.8 (1) TOPHER (acute kidney injury) Current Visit: Yes Status: Acute Plan to address problem: Patient has baseline normal creatinine Had been vomiting for the last 48 hours Clinical picture consistent with ATN IV fluids for now Nephrology consult (2) Syncope and collapse Current Visit: Yes Status: Acute Plan to address problem: Secondary to volume depletion No workup for syncope Patient is orthostatic (3) Leukocytosis, suspected SIRS without organ dysfunction, poa Current Visit: Yes Status: Acute Qualifiers: Leukocytosis type: unspecified Qualified Code(s): D72.829 - Elevated white blood cell count, unspecified Plan to address problem: Secondary to D margination Empiric Rocephin initiated May de-escalate (4) Cannabinoid hyperemesis syndrome Current Visit: Yes Status: Acute Plan to address problem: Patient has been doing cannabis and excess amounts--2 ounces per day Patient initiated on CIWA protocol Ativan every 1-2 hours by mouth Mental health consult (5) Marijuana dependence Current Visit: Yes Status: Chronic Plan to address problem: Mental health consult (6) Hypertension Current Visit: Yes Status: Chronic Qualifiers: Hypertension type: essential hypertension Qualified Code(s): I10 - Essential (primary) hypertension Plan to address problem: Continue antihypertensives (7) Acute gastritis Current Visit: Yes Status: Acute Qualifiers: Gastritis type: unspecified gastritis Gastritis bleeding: without bleeding Qualified Code(s): K29.00 - Acute gastritis without bleeding Plan to address problem: IV Protonix 40 mg every 12 (8) Hypokalemia Current Visit: Yes Status: Acute Plan to address problem: Supplemented (9) Nicotine dependence Current Visit: Yes Status: Chronic Qualifiers: Nicotine product type: cigarettes Plan to address problem: Counseled Miguem patch initiated (10) DVT prophylaxis Current Visit: Yes Status: Acute Plan to address problem: Lovenox 40 mg subcutaneous daily and GI prophylaxis debt counselor on non-compliance, he has been out of medications since November. He was on buspirone, seroquel, clonidine, lisinopril, lipitor, flomax, pepcid, prilosec and clonidine. I will not give psych medications, he needs to return to his Mental health team for refills. I will give him a psychiatrist referral. No Clonidine b/c dangerous for rebound malignant hypertension with non-compliance, no lisinopril for ARF risk. Use Norvasc because it is free with script and he has no insurance. Disposition: DC- TO HOME OR SELFCARE Time spent for discharge: 36 minutes Core Measure Documentation - Palliative Care Palliative Care/ Comfort Measures: Not Applicable - Core Measures Any of the following diagnoses?: none - VTE Discharge Requirements Deep Vein Thrombosis/Pulmonary Embolism Present on Admission: No Has pt received <5 days of overlap therapy or INR<2.0: No Anticoagulant overlap therapy prescribed at discharge: No Contraindication No Overlap Therapy order at DC: Not Indicated Exam - Physical Exam Narrative exam: Gen: WDWN, NAD, Awake, Alert, Orientated HEENT: NCAT, EOMI, PERRL, OP Clear Neck: supple, no adenopathy, no thyromegaly, no JVD CVS/Heart: RRR, normal S1S2, pulses present bilaterally Chest/Lungs: CTA B, Symmetrical chest expansion, good air entry bilaterally GI/Abdomen: soft, NTND, good bowel sounds, no guarding or rebound /Bladder: no suprapubic tenderness, no CVA or paraspinal tenderness Extermity/Skin: no c/c/e, no obvious rash MSK: FROM x 4 Neuro: CN 2-12 grossly intact, no new focal deficits Psych: calm - Constitutional Vitals: Temp Pulse Resp BP Pulse Ox 98.1 F 77 18 124/76 96 03/09/19 11:47 03/09/19 11:47 03/09/19 11:47 03/09/19 11:47 03/09/19 11:47 Plan Activity: other (no strenous activity unless cleared by PCP) Diet: low salt, advance as tolerated Special Instructions: record daily BP diary Follow up with: JYOTSNA DUNNE MD [Staff Physician] - 7 Days [facility] [Provider Group] - 7 Days Prescriptions: amLODIPine 5 mg PO QDAY #30 tablet Nicotine [Habitrol] 14 mg TD QDAY #15 patch oxyCODONE /ACETAMINOPHEN [Percocet 5/325 mg] 1 tab PO Q6H PRN #15 tablet PRN Reason: Pain , Severe (7-10) Pantoprazole [Protonix TAB] 40 mg PO QDAY #14 tablet Ondansetron [Zofran Odt] 4 mg PO Q8HR PRN #12 tab.rapdis PRN Reason: Nausea
[2019-03-09] MEDS ORDERED: PROTONIX PO SCH (22:00)
== END 2019-03-09 12:36 | disposition home or self-care (01) | DRG 391 ==
LOC: ED 13:15 → 4A 18:01
PROVIDERS: ADMIT Internal Medicine; ATTEND Internal Medicine
PROC: 3E0234Z Introduction of Serum, Toxoid and Vaccine into Muscle, Percutaneous Approach (ICD-10-PCS; principal; 2019-03-07)
DX: K29.00 Acute gastritis without bleeding (principal); N17.0 Acute kidney failure with tubular necrosis; E87.2 Acidosis; R65.10 Systemic inflammatory response syndrome (SIRS) of non-infectious origin without acute organ dysfunction; E66.9 Obesity, unspecified; I10 Essential (primary) hypertension; K21.9 Gastro-esophageal reflux disease without esophagitis; M19.90 Unspecified osteoarthritis, unspecified site; K76.0 Fatty (change of) liver, not elsewhere classified; F17.210 Nicotine dependence, cigarettes, uncomplicated; R11.2 Nausea with vomiting, unspecified; F12.29 Cannabis dependence with unspecified cannabis-induced disorder; E87.6 Hypokalemia; G89.29 Other chronic pain; Z68.30 Body mass index [BMI] 30.0-30.9, adult; Z23 Encounter for immunization
CPT/HCPCS: 36415; 70450; 71045; 74176; 76770; 80048; 80053; 80061; 80307; 80320; 81001; 82550; 82570; 82962; 83690; 83735; 83935; 84156; 84300; 84443; 84484; 84550; 85025; 85610; 85730; 87116; 90471; 90715; 90732; 93005; 93010; 96374; 96375; 99406; G0378; C9113; G0480; J0696; J1200; J1630; J2405; J2765; J3010; J3480; J7030

== ENCOUNTER 2019-07-13 12:48 | Outpatient (CLI) | payer OTHER ==
--- NOTE | 2019-07-13 14:04 | XRay Report ---
XR shoulder BILAT 2+V INDICATION / CLINICAL INFORMATION: CATHERINE SHOULDER PAIN. COMPARISON: None available. FINDINGS: BONES/JOINT(S): No acute fracture or subluxation. Mild DJD in the AC joints. No aggressive appearing bone lesion bilaterally. SOFT TISSUES: No significant abnormality. ADDITIONAL FINDINGS: None. Signer Name: Delroy Lugo MD Signed: 07/13/2019 2:00 PM Workstation Name: [id number]
--- NOTE | 2019-07-13 14:05 | XRay Report ---
XR spine cervical 2-3V INDICATION / CLINICAL INFORMATION: NECK PAIN. COMPARISON: None available. FINDINGS: BONES/JOINT(S): No acute fracture or subluxation. Mild degenerative disc disease at C6-7 with disc he ight loss and endplate osteophyte formation. SOFT TISSUES: No significant abnormality. ADDITIONAL FINDINGS: None. Signer Name: Delroy Lugo MD Signed: 07/13/2019 2:01 PM Workstation Name: [id number]
--- NOTE | 2019-07-13 14:06 | XRay Report ---
XR spine lumbosacral 2-3V INDICATION / CLINICAL INFORMATION: BACK PAIN. COMPARISON: None available. FINDINGS: BONES/JOINT(S): No acute fracture or subluxation. Mild disc height loss at L4-5 with reactive endplat e osteophyte formation. SOFT TISSUES: No significant abnormality. ADDITIONAL FINDINGS: None. Signer Name: Delroy Lugo MD Signed: 07/13/2019 2:02 PM Workstation Name: [id number]
--- NOTE | 2019-07-13 14:06 | XRay Report ---
XR ankle 2V LT INDICATION / CLINICAL INFORMATION: LT ANKLE PAIN. COMPARISON: None available. FINDINGS: BONES/JOINT(S): No acute fracture or subluxation. Previous plate and screw fixation of the distal fib ector as well as screw placed across the distal tibiofibular syndesmosis. There is some lucency around the tibiofibular screw which may indicate loosening. SOFT TISSUES: No significant abnormality. ADDITIONAL FINDINGS: None. Signer Name: Delroy Lugo MD Signed: 07/13/2019 2:01 PM Workstation Name: [id number]
== END 2019-07-13 12:49 | disposition home or self-care (01) ==
LOC: XRAY 12:48
DX: M19.012 Primary osteoarthritis, left shoulder (principal); M19.011 Primary osteoarthritis, right shoulder; M47.812 Spondylosis without myelopathy or radiculopathy, cervical region; M25.579 Pain in unspecified ankle and joints of unspecified foot
CPT/HCPCS: 72040; 72100

== ENCOUNTER 2020-06-08 02:46 | Observation (INO) | payer OTHER, SELFPAY ==
[2020-06-08] MEDS ORDERED: SODIUM CHLORIDE 0.9% 1000 ML 1,000 ML IV ONE ×3 (02:56→06:23)
--- NOTE | 2020-06-08 02:59 | Emergency Department Report ---
ED Syncope HPI - General Stated Complaint: SYNCOPE Time Seen by Provider: 06/08/20 02:55 Source: patient, EMS Exam Limitations: no limitations - History of Present Illness Initial Comments: Patient is a 49-year-old male that presents emergency room with complaints of a syncopal episode. Patient states the first time this ever happened. Patient states it only happened once. Patient states it witnessed by his family. Patient states he was trying to get out of bed to go the bathroom and became lightheaded and passed out. Patient states he hit his left cheek on the floor. Patient states he is having facial pain. Patient states patient pain is a 4 out of 10. Patient states it is better with rest and worse with palpation. Patient denies fever and chills. Patient denies chest pain or shortness of breath. Patient states he is just feeling tired and weak. Patient denies recent travel. Patient denies recent international travel. Patient denies exposure to the novel coronavirus. Patient denies sick contacts. Patient denies fever and chills. Patient denies cough. Patient denies sandeep rrhea. Patient denies coming in contact with anybody with symptoms of the novel coronavirus. Timing/Prior Episodes: no prior history Precipitating Factors: Positive: lightheadedness Context: standing, activity Loss of Consciousness: brief (seconds) Current Symptoms: headache, injury, weakness. denies: blurred vision, chest pain, diaphoresis, dizziness - Related Data Allergies/Adverse Reactions: Allergies No Known Allergies Allergy (Verified 06/01/18 15:03) Home Medications: Ambulatory Orders Nicotine [Habitrol] 14 mg TD QDAY #15 patch 03/09/19 Ondansetron [Zofran Odt] 4 mg PO Q8HR PRN #12 tab.rapdis 03/09/19 Pantoprazole [Protonix TAB] 40 mg PO QDAY #14 tablet 03/09/19 amLODIPine 5 mg PO QDAY #30 tablet 03/09/19 oxyCODONE /ACETAMINOPHEN [Percocet 5/325 mg] 1 tab PO Q6H PRN #15 tablet 03/09/19 ED Review of Systems ROS: Stated complaint: SYNCOPE Other details as noted in HPI Constitutional: malaise. denies: chills, fever Eyes: denies: eye pain, eye discharge, vision change ENT: denies: ear pain, throat pain Respiratory: denies: cough, shortness of breath, wheezing Cardiovascular: denies: chest pain, palpitations Endocrine: no symptoms reported Gastrointestinal: denies: abdominal pain, nausea, diarrhea Genitourinary: denies: urgency, dysuria Musculoskeletal: denies: back pain, joint swelling, arthralgia Skin: denies: rash, lesions Neurological: as per HPI, weakness. denies: paresthesias Psychiatric: denies: anxiety, depression Hematological/Lymphatic: denies: easy bleeding, easy bruising ED Past Medical Hx - Past Medical History Previous Medical History?: Yes Hx Hypertension: Yes (high cholesterol) Hx Congestive Heart Failure: No Hx Diabetes: No Hx GERD: Yes Hx Liver Disease: Yes (fatty liver) Hx Arthritis: Yes Hx Asthma: No Hx COPD: No - Surgical History Past Surgical History?: Yes Hx Appendectomy: Yes - Family History Family history: no significant - Social History Smoking Status: Current Every Day Smoker Substance Use Type: None - Medications Home Medications: Home Medications Medication Instructions Recorded Confirmed Last Taken Type Nicotine [Habitrol] 14 mg TD QDAY #15 patch 03/09/19 Unknown Rx Ondansetron [Zofran Odt] 4 mg PO Q8HR PRN #12 tab.rapdis 03/09/19 Unknown Rx Pantoprazole [Protonix TAB] 40 mg PO QDAY #14 tablet 03/09/19 Unknown Rx amLODIPine 5 mg PO QDAY #30 tablet 03/09/19 Unknown Rx oxyCODONE /ACETAMINOPHEN [Percocet 1 tab PO Q6H PRN #15 tablet 03/09/19 Unknown Rx 5/325 mg] ED Physical Exam - General Limitations: No Limitations General appearance: alert, in no apparent distress - Head Head exam: Present: atraumatic, normocephalic - Eye Eye exam: Present: normal appearance, PERRL Pupils: Present: normal accommodation - ENT ENT exam: Present: mucous membranes moist - Neck Neck exam: Present: normal inspection - Respiratory Respiratory exam: Present: normal lung sounds bilaterally. Absent: respiratory distress, wheezes, rales - Cardiovascular Cardiovascular Exam: Present: regular rate, normal rhythm. Absent: systolic murmur, diastolic murmur, rubs, gallop - GI/Abdominal GI/Abdominal exam: Present: soft, normal bowel sounds - Rectal Rectal exam: Present: deferred - Extremities Exam Extremities exam: Present: normal inspection - Back Exam Back exam: Present: normal inspection - Neurological Exam Neurological exam: Present: alert, oriented X3 - Psychiatric Psychiatric exam: Present: normal affect, normal mood - Skin Skin exam: Present: warm, dry, intact, normal color, ecchymosis (Under left eye). Absent: rash ED Course Vital Signs 06/08/20 06/08/20 06/08/20 02:57 04:42 05:13 Temperature 98.3 F Pulse Rate 71 70 68 Respiratory 18 15 15 Rate Blood Pressure 83/57 92/59 128/85 [Left] O2 Sat by Pulse 98 99 99 Oximetry 06/08/20 06:01 Temperature Pulse Rate 88 Respiratory 18 Rate Blood Pressure 118/67 [Left] O2 Sat by Pulse 98 Oximetry - Reevaluation(s) Reevaluation #1: Initial evaluation done. Patient found to be hypotensive. Patient will receive fluids. 06/08/20 03:02 Reevaluation #2: Patient's blood pressure is improving. Patient will continue to receive fluids. 06/08/20 03:33 Reevaluation #3: Patient unable to have CT due to being claustrophobic. Patient will be given Ativan. Patient will have another liter of fluids started to prevent hypotension. 06/08/20 04:23 Reevaluation #4: Patient blood pressure improving. 06/08/20 05:04 Reevaluation #5: I discussed all results with patient. I discussed plan of care with patient. Patient agrees with plan of care and admission. Patient to be admitted to the hospitalist service. 06/08/20 06:14 - Consultations Consultation #1: Hospitalist consulted for admission. Hospitalist to admit patient. 06/08/20 06:14 ED Medical Decision Making - Lab Data Result diagrams: 06/08/20 03:12 06/08/20 03:12 - EKG Data -: EKG Interpreted by Me EKG shows normal: sinus rhythm, axis, intervals, QRS complexes, ST-T waves Rate: normal - Radiology Data Radiology results: report reviewed, image reviewed interpreted by me: Chest x-ray: No pneumonia, no pneumothorax, no foreign body, no osseous findings, no acute findings CHEST 1 VIEW 06/08/2020 2:48 AM INDICATION / CLINICAL INFORMATION: Syncope. COMPARISON: 03/07/2019 FINDINGS: SUPPORT DEVICES: None. HEART / MEDIASTINUM: No significant abnormality. LUNGS / PLEURA: No significant pulmonary or pleural abnormality. No pneumothorax. ADDITIONAL FINDINGS: No significant additional findings. IMPRESSION: 1. No acute findings. CTA CHEST WITH CONTRAST INDICATION / CLINICAL INFORMATION: SYNCOPE. ELEVATED DIMER. TECHNIQUE: Axial CT images were obtained through the chest after injection of 100 cc of Omnipaque 350 IV contrast. 3 plane MIP and/or 3D reconstructions were produced. All CT scans at this location are performed using CT dose reduction for ALARA by means of automated exposure control. COMPARISON: None available. FINDINGS: PULMONARY ARTERIES: No pulmonary emboli. THORACIC AORTA: No significant abnormality. HEART: No significant abnormality. CORONARY ARTERY CALCIFICATION: Mild. MEDIASTINUM / BALDEV: No significant abnormality. PLEURA: No pleural effusion. No pneumothorax. LUNGS: There is mild dependent atelectasis. ADDITIONAL FINDINGS: None. UPPER ABDOMEN: No acute findings. SKELETAL STRUCTURES: No significant osseous abnormality. IMPRESSION: 1. No CT evidence for pulmonary embolism. 2. No acute findings. CT HEAD WITHOUT CONTRAST INDICATION / CLINICAL INFORMATION: Syncope. TECHNIQUE: All CT scans at this location are performed using CT dose reduction for ALARA by means of automated exposure control. COMPARISON: 03/07/2019 FINDINGS: HEMORRHAGE: None. EXTRA-AXIAL SPACES: Normal in size and morphology for the patient's age. VENTRICULAR SYSTEM: Normal in size and morphology for the patient's age. CEREBRAL PARENCHYMA: No significant abnormality. No acute territorial infarct. MIDLINE SHIFT / HERNIATION: None. CEREBELLUM / BRAINSTEM: No significant abnormality. ORBITS: Normal as visualized. SOFT TISSUES: No significant abnormality. SKULL: No significant abnormality. PARANASAL SINUSES / MASTOID AIR CELLS: There is a mucous retention cyst in the left maxillary sinus. ADDITIONAL FINDINGS: None. IMPRESSION: 1. No acute intracranial abnormality. CT facial bones wo con INDICATION: FACE TRAUMA. FACIAL PAIN. TECHNIQUE: All CT scans at this location are performed using the following dose modulation technique: Automated exposure control. Helical slices were obtained through the facial bones. Coronal and sagittal reformatted images were obtained. COMPARISON: None available. FINDINGS: There is a mucous retention cyst in the left maxillary sinus which measures 2.2 x 1.3 cm. There are small mucus tension cyst in the right maxillary sinus which measure up to 5 mm. The ethmoid air cells, frontal sinus, and sphenoid sinus are clear. No fracture or dislocation is seen. No focal lytic or sclerotic lesions are seen. IMPRESSION: 1. No fracture is seen. 2. There are mucous retention cyst in the maxillary sinuses. - Medical Decision Making Patient is a 49-year-old male who presents emergency room with complaints of syncopal episode. Patient states he was getting out of bed and felt forward and hit his left cheek on the floor. Patient only complains of lightheadedness, fatigue, weakness and facial pain. After initial evaluation, the vital signs were done and the patient was noted to be hypertensive. Patient given fluids and the patient's blood pressure responded well. Patient became anxious with a CT and was given Ativan. Patient had essentially unremarkable. A head CT, facial CT and a CTA. Patient CTA was done for elevated D-dimer and CBC. P atient's head CT was done for syncope. Patient's CT of the patient was returned because of the redness and facial trauma. Patient CTAs were all negative for acute findings. Patient admitted to the hospital service for further evaluation treatment. - Differential Diagnosis Fall, syncope, head injury, fracture, contusion, hypotension Critical Care Time: Yes Critical care time in (mins) excluding proc time.: 35 Critical care attestation.: If time is entered above; I have spent that time in minutes in the direct care of this critically ill patient, excluding procedure time. Critical Care Time: 35 minutes ED Disposition Clinical Impression: Syncope and collapse, Elevated d-dimer, Facial pain, Lightheadedness Hypotension Qualifiers: Hypotension type: unspecified hypotension type Qualified Code(s): I95.9 - Hypotension, unspecified Facial trauma Qualifiers: Encounter type: initial encounter Qualified Code(s): S09.93XA - Unspecified injury of face, initial encounter Disposition: DC-09 OP ADMIT IP TO THIS HOSP Is pt being admited?: Yes Does the pt Need Aspirin: No Condition: Critical Instructions: Syncope (ED) Time of Disposition: 06:23
[2020-06-08 03:33] LABS: Basophils # (Auto) 0.1 K/mm3 (0.0-0.1); Eosinophils # (Auto) 0.3 K/mm3 (0.0-0.4); Eosinophils % (Auto) 2.3 % (0.0-4.3); Hematocrit 47.4 % (35.5-45.6); Hemoglobin 15.4 gm/dl (11.8-15.2); Lymphocytes # (Auto) 1.6 K/mm3 (1.2-5.4); Lymphocytes % (Auto) 14.2 % (13.4-35.0); Mean Corpuscular HGB Conc 33 % (32-34); Mean Corpuscular Volume 84 fl (84-94); Monocytes # (Auto) 0.5 K/mm3 (0.0-0.8); Monocytes % (Auto) 4.9 % (0.0-7.3); Platelet Count 255 K/mm3 (140-440); Red Blood Count 5.61 M/mm3 (3.65-5.03); Red Cell Distribution Width 14.5 % (13.2-15.2)
[2020-06-08 03:50] LABS: Creatine Kinase MB 1.5 ng/mL (0.0-4.0)
[2020-06-08 03:53] LABS: Alanine Aminotransferase 66 units/L (7-56); Albumin 4.4 g/dL (3.9-5); BUN/Creatinine Ratio 15; Blood Urea Nitrogen 15 mg/dL (9-20); Calcium 9.3 mg/dL (8.4-10.2); Hemolysis Index 18
--- NOTE | 2020-06-08 04:00 | XRay Report ---
CHEST 1 VIEW 06/08/2020 2:48 AM INDICATION / CLINICAL INFORMATION: Syncope. COMPARISON: 03/07/2019 FINDINGS: SUPPORT DEVICES: None. HEART / MEDIASTINUM: No significant abnormality. LUNGS / PLEURA: No significant pulmonary or pleural abnormality. No pneumothorax. ADDITIONAL FINDINGS: No significant additional findings. IMPRESSION: 1. No acute findings. Signer Name: Jose Gupta MD Signed: 06/08/2020 3:56 AM Workstation Name: [id number]
[2020-06-08] MEDS ORDERED: LORazepam 2 MG/ML VIAL IV ONE (04:32)
--- NOTE | 2020-06-08 06:02 | Cat Scan Report ---
CT HEAD WITHOUT CONTRAST INDICATION / CLINICAL INFORMATION: Syncope. TECHNIQUE: All CT scans at this location are performed using CT dose reduction for ALARA by means of automated exposure control. COMPARISON: 03/07/2019 FINDINGS: HEMORRHAGE: None. EXTRA-AXIAL SPACES: Normal in size and morphology for the patient's age. VENTRICULAR SYSTEM: Normal in size and morphology for the patient's age. CEREBRAL PARENCHYMA: No significant abnormality. No acute territorial infarct. MIDLINE SHIFT / HERNIATION: None. CEREBELLUM / BRAINSTEM: No significant abnormality. ORBITS: Normal as visualized. SOFT TISSUES: No significant abnormality. SKULL: No significant abnormality. PARANASAL SINUSES / MASTOID AIR CELLS: There is a mucous retention cyst in the left maxillary sinus. ADDITIONAL FINDINGS: None. IMPRESSION: 1. No acute intracranial abnormality. Signer Name: Jose Gupta MD Signed: 06/08/2020 5:57 AM Workstation Name: [id number]
--- NOTE | 2020-06-08 06:06 | Cat Scan Report ---
CT facial bones wo con INDICATION: FACE TRAUMA. FACIAL PAIN. TECHNIQUE: All CT scans at this location are performed using the following dose modulation technique: Automated exposure control. Helical slices were obtained through the facial bones. Coronal and sagittal reforma tted images were obtained. COMPARISON: None available. FINDINGS: There is a mucous retention cyst in the left maxillary sinus which measures 2.2 x 1.3 cm. There are s mall mucus tension cyst in the right maxillary sinus which measure up to 5 mm. The ethmoid air cells, frontal sinus, and sphenoid sinus are clear. No fracture or dislocation is seen. No focal lytic or sclerotic lesions are seen. IMPRESSION: 1. No fracture is seen. 2. There are mucous retention cyst in the maxillary sinuses. Signer Name: Jose Gupta MD Signed: 06/08/2020 6:01 AM Workstation Name: [id number]
--- NOTE | 2020-06-08 06:09 | Cat Scan Report ---
CTA CHEST WITH CONTRAST INDICATION / CLINICAL INFORMATION: SYNCOPE. ELEVATED DIMER. TECHNIQUE: Axial CT images were obtained through the chest after injection of 100 cc of Omnipaque 350 IV contrast. 3 plane MIP and/or 3D reconstructions were produced. All CT scans at this location are performed using CT dose reduction for ALARA by means of automated exposure control. COMPARISON: None available. FINDINGS: PULMONARY ARTERIES: No pulmonary emboli. THORACIC AORTA: No significant abnormality. HEART: No significant abnormality. CORONARY ARTERY CALCIFICATION: Mild. MEDIASTINUM / BALDEV: No significant abnormality. PLEURA: No pleural effusion. No pneumothorax. LUNGS: There is mild dependent atelectasis. ADDITIONAL FINDINGS: None. UPPER ABDOMEN: No acute findings. SKELETAL STRUCTURES: No significant osseous abnormality. IMPRESSION: 1. No CT evidence for pulmonary embolism. 2. No acute findings. Signer Name: Jose Gupta MD Signed: 06/08/2020 6:05 AM Workstation Name: [id number]
[2020-06-08 17:42] VITALS: BP 127/79
== END 2020-06-08 17:00 | disposition left against medical advice (07) ==
LOC: ED 02:46 → 4A 06:18
PROVIDERS: ADMIT Internal Medicine Geriatric Medicine; ATTEND Internal Medicine Geriatric Medicine
DX: I95.9 Hypotension, unspecified (principal); S09.93XA Unspecified injury of face, initial encounter; R55 Syncope and collapse; R74.8 Abnormal levels of other serum enzymes; R42 Dizziness and giddiness; R51.9 Headache, unspecified; K21.9 Gastro-esophageal reflux disease without esophagitis; M19.90 Unspecified osteoarthritis, unspecified site; K76.0 Fatty (change of) liver, not elsewhere classified; F17.210 Nicotine dependence, cigarettes, uncomplicated; Z90.49 Acquired absence of other specified parts of digestive tract; W18.30XA Fall on same level, unspecified, initial encounter; Y93.89 Activity, other specified; Y92.89 Other specified places as the place of occurrence of the external cause; Y99.8 Other external cause status
CPT/HCPCS: 36415; 70450; 70486; 71045; 71275; 80053; 82550; 82553; 84484; 85025; 85379; 93005; 96361; 96374; 99285; G0378; J2060; J7030; Q9967

== ENCOUNTER 2020-09-27 11:22 | Emergency (ER) | payer SELFPAY ==
[2020-09-27] MEDS ORDERED: HALOPERIDOL LACTATE 5 MG/1 ML INJ IM ONE (11:44)
[2020-09-27] MEDS ORDERED: SODIUM CHLORIDE 0.9% 1000 ML 1,000 ML IV ONE (11:45)
--- NOTE | 2020-09-27 12:08 | Emergency Department Report ---
ED Abdominal Pain HPI - General Chief Complaint: Abdominal Pain Stated Complaint: ABD PAIN/NAUSEA/VOMITING Time Seen by Provider: 09/27/20 11:44 Source: patient, EMS Mode of arrival: Stretcher Limitations: No Limitations - History of Present Illness Initial Comments: 50-year-old male, history of hypertension, cannabinoid hyperemesis syndrome, presents to ED with abdominal pain. Patient states pain began around 2 AM this morning. Pain is located just above the umbilical area. Patient reports history of cannabinoid hyperemesis syndrome in the past. States symptoms are worse than what he has previously experienced. Patient states he has decreased his marijuana usage, however he still does smoke marijuana. Patient reports associated nausea and vomiting. He denies any fever. MD Complaint: abdominal pain -: This morning Location: periumbilical Radiation: none Migration to: no migration Severity: severe Quality: cramping Consistency: constant Improves With: nothing Worsens With: nothing Associated Symptoms: nausea, vomiting. denies: diarrhea, fever - Related Data Home Medications Medication Instructions Recorded Confirmed Last Taken Lisinopril [Zestril] 5 mg PO 06/08/20 06/08/20 Unknown SEROquel 20 mg 06/08/20 Unknown Previous Rx's Medication Instructions Recorded Last Taken Type Nicotine [Habitrol] 14 mg TD QDAY #15 patch 03/09/19 Unknown Rx Ondansetron [Zofran Odt] 4 mg PO Q8HR PRN #12 tab.rapdis 03/09/19 Unknown Rx Pantoprazole [Protonix TAB] 40 mg PO QDAY #14 tablet 03/09/19 Unknown Rx amLODIPine 5 mg PO QDAY #30 tablet 03/09/19 Unknown Rx oxyCODONE /ACETAMINOPHEN [Percocet 1 tab PO Q6H PRN #15 tablet 03/09/19 Unknown Rx 5/325 mg] Dicyclomine [Bentyl] 20 mg PO QID PRN #20 tablet 09/27/20 Unknown Rx Ondansetron [Zofran Odt] 4 mg PO Q8HR PRN #20 tab.rapdis 09/27/20 Unknown Rx Allergies Allergy/AdvReac Type Severity Reaction Status Date / Time No Known Allergies Allergy Verified 06/01/18 15:03 ED Review of Systems ROS: Stated complaint: ABD PAIN/NAUSEA/VOMITING Other details as noted in HPI Comment: All other systems reviewed and negative Constitutional: denies: fever Gastrointestinal: abdominal pain, nausea, vomiting ED Past Medical Hx - Past Medical History Hx Hypertension: Yes Hx Congestive Heart Failure: No Hx Diabetes: No Hx GERD: Yes Hx Liver Disease: Yes (fatty liver) Hx Arthritis: Yes Hx Asthma: No Hx COPD: No - Surgical History Hx Appendectomy: Yes - Social History Smoking Status: Current Every Day Smoker - Medications Home Medications: Home Medications Medication Instructions Recorded Confirmed Last Taken Type Nicotine [Habitrol] 14 mg TD QDAY #15 patch 03/09/19 06/08/20 Unknown Rx Ondansetron [Zofran Odt] 4 mg PO Q8HR PRN #12 tab.rapdis 03/09/19 06/08/20 Unknown Rx Pantoprazole [Protonix TAB] 40 mg PO QDAY #14 tablet 03/09/19 06/08/20 Unknown Rx amLODIPine 5 mg PO QDAY #30 tablet 03/09/19 06/08/20 Unknown Rx oxyCODONE /ACETAMINOPHEN [Percocet 1 tab PO Q6H PRN #15 tablet 03/09/19 06/08/20 Unknown Rx 5/325 mg] Lisinopril [Zestril] 5 mg PO 06/08/20 06/08/20 Unknown History SEROquel 20 mg 06/08/20 Unknown History Dicyclomine [Bentyl] 20 mg PO QID PRN #20 tablet 09/27/20 Unknown Rx Ondansetron [Zofran Odt] 4 mg PO Q8HR PRN #20 tab.rapdis 09/27/20 Unknown Rx ED Physical Exam - General Limitations: No Limitations General appearance: alert, other (Appears uncomfortable) - Head Head exam: Present: atraumatic, normocephalic - Eye Eye exam: Present: normal appearance, EOMI - ENT ENT exam: Present: mucous membranes moist - Neck Neck exam: Present: normal inspection - Respiratory Respiratory exam: Present: normal lung sounds bilaterally. Absent: respiratory distress - Cardiovascular Cardiovascular Exam: Present: regular rate, normal rhythm - GI/Abdominal GI/Abdominal exam: Present: soft, tenderness (Mid abdominal, epigastric, left lower quadrant tenderness). Absent: distended - Extremities Exam Extremities exam: Present: normal inspection - Neurological Exam Neurological exam: Present: alert, oriented X3 - Psychiatric Psychiatric exam: Present: normal affect, normal mood - Skin Skin exam: Present: warm, intact, normal color, diaphoretic ED Course Vital Signs 09/27/20 09/27/20 11:25 15:00 Temperature 98.8 F Pulse Rate 80 72 Respiratory 20 Rate Blood Pressure 213/120 177/101 O2 Sat by Pulse 100 Oximetry ED Medical Decision Making - Lab Data Result diagrams: 09/27/20 12:00 09/27/20 12:00 - Radiology Data Radiology results: report reviewed, image reviewed - Medical Decision Making 50-year-old male presents to ED with abdominal pain, nausea and vomiting. Patient initially appeared to be very uncomfortable, with hypertensive blood pressure. There was concern for aortic dissection, so patient was immediately taken to CT. CT showed no evidence of aortic pathology or any other intra- abdominal pathology. Patient reported history of cannabinoid hyperemesis syndrome. He was given Haldol and pain medication for symptom relief. Patient also given hydralazine for treatment of his blood pressure. Patient currently feeling much better at this time. Will discharge with prescriptions. Patient reminded of the importance of stopping his marijuana usage. Outpatient follow- up advised, return precautions given. - Differential Diagnosis Aortic dissection, bowel obstruction, cannabinoid hyperemesis syndrome Critical care attestation.: If time is entered above; I have spent that time in minutes in the direct care of this critically ill patient, excluding procedure time. ED Disposition Clinical Impression: Hypertensive urgency, Abdominal pain Disposition: - TO HOME OR SELFCARE Is pt being admited?: No Condition: Stable Instructions: Abdominal Pain, Adult, [id number], Hypertension, Adult, [id number] Prescriptions: Dicyclomine [Bentyl] 20 mg PO QID PRN #20 tablet PRN Reason: abdominal pain Ondansetron [Zofran Odt] 4 mg PO Q8HR PRN #20 tab.rapdis PRN Reason: Vomiting Referrals: PRIMARY CARE, [Primary Care Provider] - 3-[address] [facility] [Provider Group] - 3-5 Days [facility] [Provider Group] - 3-5 Days Time of Disposition: 15:23
[2020-09-27] MEDS ORDERED: HYDROmorphone 1 MG/1 ML INJ IV ONE ×4 (12:17→16:30)
[2020-09-27 12:20] LABS: Basophils # (Auto) 0.1 K/mm3 (0.0-0.1); Basophils % (Auto) 0.5 % (0.0-1.8); Eosinophils # (Auto) 0.1 K/mm3 (0.0-0.4); Eosinophils % (Auto) 0.7 % (0.0-4.3); Hematocrit 52.1 % (35.5-45.6); Hemoglobin 17.3 gm/dl (11.8-15.2); Lymphocytes # (Auto) 1.1 K/mm3 (1.2-5.4); Lymphocytes % (Auto) 6.5 % (13.4-35.0); Mean Corpuscular HGB Conc 33 % (32-34); Mean Corpuscular Volume 85 fl (84-94); Monocytes # (Auto) 0.8 K/mm3 (0.0-0.8); Monocytes % (Auto) 4.7 % (0.0-7.3); Platelet Count 343 K/mm3 (140-440); Red Blood Count 6.13 M/mm3 (3.65-5.03); Red Cell Distribution Width 14.5 % (13.2-15.2)
--- NOTE | 2020-09-27 13:03 | Cat Scan Report ---
CTA CHEST, ABDOMEN, AND PELVIS WITH IV CONTRAST INDICATION: severe abd pain. TECHNIQUE: Axial CT images were obtained through the chest, abdomen, and pelvis after injection of 100 cc Omnipa que 350 IV contrast. 3 plane MIP reconstructions were produced. All CT scans at this location are per formed using CT dose reduction for ALARA by means of automated exposure control. COMPARISON: CTA chest from 06/08/2020. CT abdomen and pelvis without contrast from 03/07/2019. FINDINGS: Heart: No significant abnormality. Thoracic Aorta: No significant abnormality. Coronary Arteries: There is moderate multifocal atherosclerosis. Great Vessels: No significant abnormality. Pulmonary Arteries: No significant abnormality. Additional Chest Findings: No significant abnormality. Abdominal Aorta: Normal in caliber with mild generalized atherosclerosis. No other significant abnorm ality. Renal arteries: No significant abnormality. Celiac artery: No significant abnormality. Superior Mesenteric Artery: The common hepatic artery arises from the SMA. No significant abnormality is noted. Inferior mesenteric artery: No significant abnormality. Right Iliac Arteries: Mild generalized nonobstructive atherosclerosis is seen without other significa nt abnormalities. Left Iliac Arteries: Mild generalized nonobstructive atherosclerosis is seen without other significan t abnormalities. Femoral Arteries: No significant abnormality as visualized. Additional Abdominopelvic Findings: No acute findings. Multiple bilateral renal cysts are unchanged. Skeletal Structures: No significant abnormality. IMPRESSION: 1. No acute vascular or nonvascular abnormality of the chest, abdomen or pelvis. 2. Additional findings as above. Signer Name: Mike Aguillon MD Signed: 09/27/2020 12:58 PM Workstation Name: [id number]
[2020-09-27 13:28] LABS: Alanine Aminotransferase 60 units/L (7-56); Albumin 4.8 g/dL (3.9-5); BUN/Creatinine Ratio 13; Blood Urea Nitrogen 13 mg/dL (9-20); Calcium 10.4 mg/dL (8.4-10.2); Hemolysis Index 15
[2020-09-27 13:30] LABS: Bilirubin,Direct < 0.2 mg/dL (0-0.2)
[2020-09-27] MEDS ORDERED: hydrALAZINE 20 MG/1 ML INJ IV ONE (14:39)
[2020-09-27 14:44] LABS: Bilirubin,Urine NEG (Negative); Blood,Urine SM (Negative); Color,Urine Yellow (Yellow); Mucus,Urine 3+ /HPF; Urobilinogen,Urine < 2.0 mg/dL (<2.0)
[2020-09-27 20:07] VITALS: BP 163/72
== END 2020-09-27 16:40 | disposition home or self-care (01) ==
LOC: ED 11:22
DX: I16.0 Hypertensive urgency (principal); R10.33 Periumbilical pain; K21.9 Gastro-esophageal reflux disease without esophagitis; M19.91 Primary osteoarthritis, unspecified site; F17.200 Nicotine dependence, unspecified, uncomplicated; Z90.49 Acquired absence of other specified parts of digestive tract; Z79.899 Other long term (current) drug therapy
CPT/HCPCS: 36415; 71275; 74174; 80048; 80076; 81001; 83690; 85025; 96361; 96372; 96374; 96375; 96376; 99285; J0360; J1170; J1630; J7030; Q9967

== ENCOUNTER 2021-02-20 18:55 | Emergency (ER) | payer OTHER ==
[2021-02-20] MEDS ORDERED: SODIUM CHLORIDE 0.9% 1000 ML 1,000 ML IV ONE (20:56)
[2021-02-20] MEDS ORDERED: ONDANSETRON 4 MG/2 ML INJ IV ONE (20:56)
[2021-02-20] MEDS ORDERED: MORPHINE 4 MG/1 ML INJ IV ONE (20:56)
[2021-02-20 21:17] LABS: Basophils # (Auto) 0.1 K/mm3 (0.0-0.1); Basophils % (Auto) 0.9 % (0.0-1.8); Eosinophils # (Auto) 0.3 K/mm3 (0.0-0.4); Hemoglobin 15.9 gm/dl (11.8-15.2); Lymphocytes # (Auto) 2.7 K/mm3 (1.2-5.4); Lymphocytes % (Auto) 26.8 % (13.4-35.0); Mean Corpuscular HGB Conc 35 % (32-34); Mean Corpuscular Volume 86 fl (84-94); Monocytes # (Auto) 0.7 K/mm3 (0.0-0.8); Monocytes % (Auto) 6.7 % (0.0-7.3); Platelet Count 287 K/mm3 (140-440); Red Blood Count 5.34 M/mm3 (3.65-5.03); Red Cell Distribution Width 14.1 % (13.2-15.2)
[2021-02-20 21:39] LABS: Alanine Aminotransferase 51 units/L (7-56); Albumin 4.6 g/dL (3.9-5); Blood Urea Nitrogen 14 mg/dL (9-20); Calcium 9.4 mg/dL (8.4-10.2); Hemolysis Index 18
[2021-02-20 21:42] LABS: BUN/Creatinine Ratio 20
--- NOTE | 2021-02-20 23:26 | Ultrasound Report ---
Testicular ultrasound INDICATION: Left-sided testicular pain TECHNIQUE: Real-time grayscale and Doppler imaging of the testicles performed. FINDINGS: The right testicle measures 3.9 x 2.5 x 3.2 cm and the left measures 3.9 x 2.9 x 3.3 cm. Th ere is normal Doppler flow involving both testicles.. No focal mass is appreciated within either test icle. There is a focal 6 mm hypoechoic lesion within the head of the right epididymis that may repres ent small epididymal cyst. Normal Doppler flow is noted within both epididymides. There are bilateral hydroceles, left greater than right. IMPRESSION: Large bilateral hydroceles, left greater than right. Signer Name: Kofi Menjivar MD Signed: 02/20/2021 11:22 PM Workstation Name: [id number]
[2021-02-21] MEDS ORDERED: MORPHINE 4 MG/1 ML INJ ONE
[2021-02-21] MEDS ORDERED: SODIUM CHLORIDE 0.9% 1000 ML 1,000 ML ONE
[2021-02-21] MEDS ORDERED: ONDANSETRON 4 MG/2 ML INJ ONE
--- NOTE | 2021-02-21 00:09 | Cat Scan Report ---
CT ABDOMEN AND PELVIS WITH IV CONTRAST INDICATION: Left lower quadrant abdominal pain. Left testicular pain COMPARISON: None available. TECHNIQUE: Axial CT images were obtained through the abdomen and pelvis after 100 mL IV contrast. All CT scans a t this location are performed using CT dose reduction for ALARA by means of automated exposure contro l. FINDINGS -- ABDOMEN: Lung Bases: No acute abnormality. Liver: Normal. Gallbladder: Normal. Bile Ducts: Normal. Pancreas: Normal. Spleen: Normal. Adrenals: Normal. Right Kidney and Proximal Ureter: Multiple cysts. Left Kidney and Proximal Ureter: Multiple cysts. Stomach and Bowel: Normal. Lymph Nodes: No significant adenopathy. Aorta: Prominent atherosclerotic calcification. IVC: Normal. Additional Findings: Small fat-containing periumbilical hernia.. FINDINGS -- PELVIS: Urinary Bladder and Distal Ureters: Normal. Reproductive Organs: No acute abnormality. Appendix: Not identified. Bowel: No acute abnormality. Free Fluid: None. Lymph Nodes: No significant adenopathy. Additional Findings: Large bilateral hydroceles incidentally noted, especially on the left.. Skeletal System: No acute abnormality. IMPRESSION: Bilateral hydroceles and other incidental findings as noted above. Signer Name: Kofi Menjivar MD Signed: 02/21/2021 12:05 AM Workstation Name: [id number]
[2021-02-21 02:30] LABS: Bilirubin,Urine NEG (Negative); Blood,Urine SM (Negative); Color,Urine Yellow (Yellow); Mucus,Urine 1+ /HPF; Protein,Urine <15 mg/dL mg/dL (Negative); Urobilinogen,Urine < 2.0 mg/dL (<2.0); WBC,Urine < 1.0 /HPF (0.0-6.0)
--- NOTE | 2021-02-21 02:43 | Emergency Department Report ---
ED Male HPI - General Chief complaint: Urogenital-Male Stated complaint: LW AB PAIN/LT TESTICAL SWOLLEN Source: patient Mode of arrival: Ambulatory Limitations: No Limitations - History of Present Illness Initial comments: Patient is a 50-year-old male with a history of hypertension, GERD, chronic osteoarthritis, and chronic fatty liver disease who presents to the ED with co mplaint of acute onset persistent severe left testicular pain and left scrotal swelling that radiates to the left lower quadrant for the last 1 week, worse in the last 24 hours. Patient states that he was initially evaluated in the hospital and diagnosed with left scrotal hydrocele. Patient states that in the last 24 hours, the pain in the left testicle has worsened to the extent that now it is radiating the left inguinal area as well as left lower quadrant such that he is unable to walk because of pain. Patient denies hematuria, dysuria, urinary frequency and urgency, chest pain, shortness of breath, fever, chills, back pain, traumatic injury, diarrhea, nausea and vomiting, headache or penile discharge. MD Complaint: testicle pain (left), testicle swelling (left), groin pain (left), other (Left lower quadrant abdominal pain) -: Sudden, week(s) (1) Location: left testicle, left inguinal region, abdomen (Left lower quadrant pain) Radiation: other (Left inguinal area) Severity: severe Severity scale (0 -10): 8 Quality: aching, sharp Consistency: constant Improves with: none Worsens with: palpation, movement new medication denies other symptoms, swelling (Left scrotal swelling). denies: discharge, mass, rash, urinary retention, blood in urine, dysuria, fever, nausea/vomiting, incontinence, other - Related Data Sexually active: Yes Home Medications Medication Instructions Recorded Confirmed Last Taken Lisinopril [Zestril] 5 mg PO 06/08/20 06/08/20 Unknown SEROquel 20 mg 06/08/20 Unknown Previous Rx's Medication Instructions Recorded Last Taken Type Nicotine [Habitrol] 14 mg TD QDAY #15 patch 03/09/19 Unknown Rx Ondansetron [Zofran Odt] 4 mg PO Q8HR PRN #12 tab.rapdis 03/09/19 Unknown Rx Pantoprazole [Protonix TAB] 40 mg PO QDAY #14 tablet 10/24/19 Unknown Rx amLODIPine 5 mg PO QDAY #30 tablet 03/09/19 Unknown Rx Dicyclomine [Bentyl] 20 mg PO QID PRN #20 tablet 09/27/20 Unknown Rx Ondansetron [Zofran Odt] 4 mg PO Q8HR PRN #20 tab.rapdis 09/27/20 Unknown Rx Naproxen Sodium [Naproxen Sodium 550 mg PO Q12H PRN #24 tablet 02/21/21 Unknown Rx 550mg] Ondansetron [Zofran Odt] 4 mg PO Q6HR PRN #15 tab.rapdis 02/21/21 Unknown Rx oxyCODONE /ACETAMINOPHEN [Percocet 1 tab PO Q6H PRN #12 tablet 02/21/21 Unknown Rx 5/325 mg] Allergies Allergy/AdvReac Type Severity Reaction Status Date / Time No Known Allergies Allergy Verified 06/01/18 15:03 ED Review of Systems ROS: Stated complaint: LW AB PAIN/LT TESTICAL SWOLLEN Other details as noted in HPI Constitutional: denies: chills, fever Eyes: denies: eye pain, eye discharge, vision change ENT: denies: ear pain, throat pain Respiratory: denies: cough, shortness of breath, wheezing Cardiovascular: denies: chest pain, palpitations Endocrine: no symptoms reported Gastrointestinal: abdominal pain (Left lower quadrant abdominal pain). denies: nausea, vomiting, diarrhea Genitourinary: testicular pain (Left testicular pain), other (Left scrotal swelling and pain). denies: urgency, dysuria Musculoskeletal: denies: back pain, joint swelling, arthralgia Skin: denies: rash, lesions Neurological: denies: headache, weakness, paresthesias Psychiatric: denies: anxiety, depression Hematological/Lymphatic: denies: easy bleeding, easy bruising ED Past Medical Hx - Past Medical History Hx Hypertension: Yes Hx Congestive Heart Failure: No Hx Diabetes: No Hx GERD: Yes Hx Liver Disease: Yes (fatty liver) Hx Arthritis: Yes Hx Asthma: No Hx COPD: No - Surgical History Hx Appendectomy: Yes - Social History Smoking Status: Never Smoker Substance Use Type: None - Medications Home Medications: Home Medications Medication Instructions Recorded Confirmed Last Taken Type Nicotine [Habitrol] 14 mg TD QDAY #15 patch 03/09/19 06/08/20 Unknown Rx Ondansetron [Zofran Odt] 4 mg PO Q8HR PRN #12 tab.rapdis 03/09/19 06/08/20 Unknown Rx Pantoprazole [Protonix TAB] 40 mg PO QDAY #14 tablet 03/09/19 06/08/20 Unknown Rx amLODIPine 5 mg PO QDAY #30 tablet 03/09/19 06/08/20 Unknown Rx Lisinopril [Zestril] 5 mg PO 06/08/20 06/08/20 Unknown History SEROquel 20 mg 06/08/20 Unknown History Dicyclomine [Bentyl] 20 mg PO QID PRN #20 tablet 09/27/20 Unknown Rx Ondansetron [Zofran Odt] 4 mg PO Q8HR PRN #20 tab.rapdis 09/27/20 Unknown Rx Naproxen Sodium [Naproxen Sodium 550 mg PO Q12H PRN #24 tablet 02/21/21 Unknown Rx 550mg] Ondansetron [Zofran Odt] 4 mg PO Q6HR PRN #15 tab.rapdis 02/21/21 Unknown Rx oxyCODONE /ACETAMINOPHEN [Percocet 1 tab PO Q6H PRN #12 tablet 02/21/21 Unknown Rx 5/325 mg] ED Physical Exam - General Limitations: No Limitations General appearance: alert, in no apparent distress - Head Head exam: Present: atraumatic, normocephalic, normal inspection - Eye Eye exam: Present: normal appearance, PERRL, EOMI Pupils: Present: normal accommodation - ENT ENT exam: Present: normal exam, normal orophraynx, mucous membranes moist, TM's normal bilaterally, normal external ear exam - Neck Neck exam: Present: normal inspection, full ROM - Respiratory Respiratory exam: Present: normal lung sounds bilaterally. Absent: respiratory distress, wheezes, rales, stridor, chest wall tenderness, accessory muscle use, decreased breath sounds - Cardiovascular Cardiovascular Exam: Present: regular rate, normal rhythm, normal heart sounds. Absent: systolic murmur, diastolic murmur, rubs, gallop - GI/Abdominal GI/Abdominal exam: Present: soft, tenderness (Palpable severe left lower quadrant tenderness), normal bowel sounds. 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 Absent: tenderness, CVA tenderness (R), CVA tenderness (L), muscle spasm, paraspinal tenderness, vertebral tenderness - Neurological Exam Neurological exam: Present: alert, oriented X3, CN II-XII intact, normal gait, reflexes normal - Psychiatric Psychiatric exam: Present: normal affect, normal mood - Skin Skin exam: Present: warm, dry, intact, normal color. Absent: rash ED Course Vital Signs 02/20/21 20:40 Temperature 97.9 F Pulse Rate 68 Respiratory 18 Rate Blood Pressure 111/80 O2 Sat by Pulse 96 Oximetry ED Medical Decision Making - Lab Data Result diagrams: 02/20/21 21:02 02/20/21 21:02 - Radiology Data Radiology results: report reviewed, image reviewed [address] [address] Ultrasound Report Signed Patient: BISHOP DORYS GREEN MR#: [id number] : 1970 Acct:[id number] Age/Sex: 50 / M ADM Date: 02/20/21 Loc: ED Attending Dr: Ordering Physician: JACKSON DAVISON Date of Service: 02/20/21 Procedure(s): US testicular doppler comp Accession Number(s): [id number] cc: JACKSON DAVISON Testicular ultrasound INDICATION: Left-sided testicular pain TECHNIQUE: Real-time grayscale and Doppler imaging of the testicles performed. FINDINGS: The right testicle measures 3.9 x 2.5 x 3.2 cm and the left measures 3.9 x 2.9 x 3.3 cm. There is normal Doppler flow involving both testicles.. No focal mass is appreciated within either testicle. There is a focal 6 mm hypoechoic lesion within the head of the right epididymis that may represent small epididymal cyst. Normal Doppler flow is noted within both epididymides. There are bilateral hydroceles, left greater than right. IMPRESSION: Large bilateral hydroceles, left greater than right. Signer Name: Kofi Menjivar MD Signed: 02/20/2021 11:22 PM Workstation Name: [id number] Transcribed By: BC Dictated By: Kofi Menjivar MD Electronically Authenticated By: Kofi Menjivar MD Signed Date/Time: 02/20/212321 DD/ 18 TD/TT: [facility] [address] [place] [address] Cat Scan Report Signed Patient: BISHOP DORYS GREEN MR#: [id number] : 1970 Acct:[id number] Age/Sex: 50 / M ADM Date: 02/20/21 Loc: ED Attending Dr: Ordering Physician: JACKSON DAVISON Date of Service: 02/20/21 Procedure(s): CT abdomen pelvis w con Accession Number(s): [id number] cc: JACKSON DAVISON CT ABDOMEN AND PELVIS WITH IV CONTRAST INDICATION: Left lower quadrant abdominal pain. Left testicular pain COMPARISON: None available. TECHNIQUE: Axial CT images were obtained through the abdomen and pelvis after 100 mL IV contrast. All CT scans at this location are performed using CT dose reduction for ALARA by means of automated exposure control. FINDINGS -- ABDOMEN: Lung Bases: No acute abnormality. Liver: Normal. Gallbladder: Normal. Bile Ducts: Normal. Pancreas: Normal. Spleen: Normal. Adrenals: Normal. Right Kidney and Proximal Ureter: Multiple cysts. Left Kidney and Proximal Ureter: Multiple cysts. Stomach and Bowel: Normal. Lymph Nodes: No significant adenopathy. Aorta: Prominent atherosclerotic calcification. IVC: Normal. Additional Findings: Small fat-containing periumbilical hernia.. FINDINGS -- PELVIS: Urinary Bladder and Distal Ureters: Normal. Reproductive Organs: No acute abnormality. Appendix: Not identified. Bowel: No acute abnormality. Free Fluid: None. Lymph Nodes: No significant adenopathy. Additional Findings: Large bilateral hydroceles incidentally noted, especially on the left.. Skeletal System: No acute abnormality. IMPRESSION: Bilateral hydroceles and other incidental findings as noted above. Signer Name: Kofi Menjivar MD Signed: 02/21/2021 12:05 AM Workstation Name: [id number] Transcribed By: BC Dictated By: Kofi Menjivar MD Electronically Authenticated By: Kofi Menjivar MD Signed Date/Time: 02/21/21 0005 DD/ 0001 TD/TT: - Medical Decision Making This is a 50-year-old male with a history of hypertension, GERD, chronic osteoarthritis, and chronic fatty liver disease who presents to the ED with complaint of acute onset persistent severe left testicular pain and left scrotal swelling that radiates to the left lower quadrant for the last 1 week, worse in the last 24 hours. Patient states that he was initially evaluated in the hospital and diagnosed with left scrotal hydrocele. Patient states that in the last 24 hours, the pain in the left testicle has worsened to the extent that now it is radiating the left inguinal area as well as left lower quadrant such that he is unable to walk because of pain. In the ED, patient is alert and oriented x3 and is not in any distress but appears to be in significant pain. Patient was treated for pain in the ED and on reevaluation, patient's pain is well controlled medications. Lab test results were reviewed and are all nonactionable including urinalysis. The abdomen pelvis CT scan with contrast showed incidental findings of bilateral hydroceles and other incidental findings. A testicular ultrasound showed large bilateral hydroceles, left greater than right. On reevaluation, patient's pain is well controlled medication. Patient will discharge home on pain medications and antiemetics and given a referral to the urologist Dr. Fenton for further evaluation. Patient was advised to contact Dr. Fenton office first thing this morning Wednesday, February 21, 2021 to schedule a follow-up appointment. Patient was otherwise advised return to the ED immediately if symptoms get worse. - Differential Diagnosis Epididymitis; testicular torsion; kidney stone; UTI; cellulitis; Critical care attestation.: If time is entered above; I have spent that time in minutes in the direct care of this critically ill patient, excluding procedure time. ED Disposition Clinical Impression: Persistent testicular pain, Bilateral hydrocele Disposition: HOME / SELF CARE / HOMELESS Is pt being admited?: No Does the pt Need Aspirin: No Condition: Stable Instructions: Testicular Self-Exam, [id number], Hydrocele, Adult Additional Instructions: All lab test results were reviewed and are all nonactionable. All imaging reports including testicular ultrasound and abdomen pelvis CT scan with contrast showed bilateral large hydroceles, left greater than right. Therefore take medications as needed for pain, drink plenty of fluids, follow-up with the urologist Dr. Fenton for further evaluation. Contact Dr. Fenton's office first thing this morning Sunday, February 21, 2021 to schedule a follow-up appointment. Return to the ED immediately if symptoms get worse Prescriptions: Naproxen Sodium [Naproxen Sodium 550mg] 550 mg PO Q12H PRN #24 tablet PRN Reason: Pain , Severe (7-10) oxyCODONE /ACETAMINOPHEN [Percocet 5/325 mg] 1 tab PO Q6H PRN #12 tablet PRN Reason: Pain , Severe (7-10) Ondansetron [Zofran Odt] 4 mg PO Q6HR PRN #15 tab.rapdis PRN Reason: Nausea Referrals: [facility] [Primary Care Provider] - 3-5 Days ROMMEL FENTON MD [Staff Physician] - 2-3 Days Time of Disposition: 02:56 Print Language: WOLOF
[2021-02-21 03:15] VITALS: BP 141/96
== END 2021-02-21 03:15 | disposition home or self-care (01) ==
LOC: ED 18:55
DX: N50.812 Left testicular pain (principal); N43.3 Hydrocele, unspecified; I10 Essential (primary) hypertension
CPT/HCPCS: 36415; 74177; 80053; 81001; 85025; 93975; 96361; 96374; 96375; 99284; J2270; J2405; J7030; Q9967

== ENCOUNTER 2021-03-02 14:11 | Emergency (ER) | payer OTHER ==
--- NOTE | 2021-03-02 14:55 | Emergency Department Report ---
ED General Adult HPI - General Chief complaint: Seizure Stated complaint: SEIZURE Time Seen by Provider: 03/02/21 14:48 Source: patient Mode of arrival: Stretcher Limitations: No Limitations - History of Present Illness Initial comments: Patient presents after passing out. He states that he does not believe he had a seizure. He states he just passed out. He was at home. He felt dizzy and lightheaded. He started to lean over the sink. The next thing he knew, he woke up on the ground. He was very concerned. He did not have chest pain. He had no palpitations. He did not have numbness or tingling in the arms or legs. He had no fevers or chills recently. Patient states he is very paranoid because he has had a heart attack before. He does not think that he had another heart attack but wants to be certain. Again, patient does not think he had a seizure. EMS reported possible seizure. Patient has never had a seizure before. - Related Data Home Medications Medication Instructions Recorded Confirmed Last Taken Lisinopril [Zestril] 20 mg PO DAILY 06/08/20 03/02/21 03/02/21 Atorvastatin Calcium [Lipitor] 80 mg PO DAILY 03/02/21 03/02/21 03/02/21 Buspirone HCl [busPIRone] 15 mg PO DAILY 03/02/21 03/02/21 03/02/21 Cholecalciferol (Vitamin D3) 25 mcg PO DAILY 03/02/21 03/02/21 03/02/21 DULoxetine [Cymbalta] 30 mg PO DAILY 03/02/21 03/02/21 03/02/21 Metoprolol [Lopressor TAB] 50 mg PO DAILY 03/02/21 03/02/21 Unknown QUEtiapine [SEROquel] 200 mg PO BID 03/02/21 03/02/21 03/02/21 Sulfamethoxazole 160 mg PO DAILY 03/02/21 03/02/21 03/02/21 Tamsulosin 4 mg PO DAILY 03/02/21 03/02/21 Unknown Previous Rx's Medication Instructions Recorded Last Taken Type Nicotine [Habitrol] 14 mg TD QDAY #15 patch 03/09/19 Unknown Rx Pantoprazole [Protonix TAB] 40 mg PO QDAY #14 tablet 03/09/19 03/02/21 14:41 Rx amLODIPine 5 mg PO QDAY #30 tablet 03/09/19 03/02/21 Rx Naproxen Sodium [Naproxen Sodium 550 mg PO Q12H PRN #24 tablet 02/21/21 Unknown Rx 550mg] oxyCODONE /ACETAMINOPHEN [Percocet 1 tab PO Q6H PRN #12 tablet 02/21/21 Unknown Rx 5/325 mg] Allergies Allergy/AdvReac Type Severity Reaction Status Date / Time No Known Allergies Allergy Verified 06/01/18 15:03 ED Review of Systems ROS: Stated complaint: SEIZURE Other details as noted in HPI Comment: All other systems reviewed and negative Constitutional: denies: fever Eyes: denies: vision change ENT: denies: ear pain Respiratory: denies: cough Cardiovascular: denies: chest pain Endocrine: denies: unexplained weight loss Gastrointestinal: denies: vomiting Genitourinary: denies: dysuria Musculoskeletal: denies: back pain Skin: denies: rash Neurological: denies: headache Hematological/Lymphatic: denies: easy bruising ED Past Medical Hx - Past Medical History Previous Medical History?: Yes Hx Hypertension: Yes (X 6 YRS) Hx Heart Attack/AMI: Yes (2019) Hx Congestive Heart Failure: Yes Hx Diabetes: Yes (NO MEDS) Hx GERD: Yes Hx Liver Disease: (FATTY LIIVER) Hx Arthritis: Yes Hx Asthma: No Hx COPD: Yes - Surgical History Past Surgical History?: Yes Hx Coronary Stent: Yes (X 2 2019) Hx Appendectomy: Yes - Family History Family history: CAD/DE, diabetes, hypertension - Social History Smoking Status: Former Smoker - Medications Home Medications: Home Medications Medication Instructions Recorded Confirmed Last Taken Type Nicotine [Habitrol] 14 mg TD QDAY #15 patch 03/09/19 03/02/21 Unknown Rx Pantoprazole [Protonix TAB] 40 mg PO QDAY #14 tablet 03/09/19 03/02/21 03/02/21 14:41 Rx amLODIPine 5 mg PO QDAY #30 tablet 03/09/19 03/02/21 03/02/21 Rx Lisinopril [Zestril] 20 mg PO DAILY 06/08/20 03/02/21 03/02/21 History Naproxen Sodium [Naproxen Sodium 550 mg PO Q12H PRN #24 tablet 02/21/21 03/02/21 Unknown Rx 550mg] oxyCODONE /ACETAMINOPHEN [Percocet 1 tab PO Q6H PRN #12 tablet 02/21/21 03/02/21 Unknown Rx 5/325 mg] Atorvastatin Calcium [Lipitor] 80 mg PO DAILY 03/02/21 03/02/21 03/02/21 History Buspirone HCl [busPIRone] 15 mg PO DAILY 03/02/21 03/02/21 03/02/21 History Cholecalciferol (Vitamin D3) 25 mcg PO DAILY 03/02/21 03/02/21 03/02/21 History DULoxetine [Cymbalta] 30 mg PO DAILY 03/02/21 03/02/21 03/02/21 History Metoprolol [Lopressor TAB] 50 mg PO DAILY 03/02/21 03/02/21 Unknown History QUEtiapine [SEROquel] 200 mg PO BID 03/02/21 03/02/21 03/02/21 History Sulfamethoxazole 160 mg PO DAILY 03/02/21 03/02/21 03/02/21 History Tamsulosin 4 mg PO DAILY 03/02/21 03/02/21 Unknown History ED Physical Exam - General Limitations: No Limitations, Other ( pulse ox was noted and normal. Is not hypoxic.) General appearance: alert, in no apparent distress - Head Head exam: Present: atraumatic, normocephalic, normal inspection - Eye Eye exam: Present: normal appearance, PERRL, EOMI - ENT ENT exam: Present: normal exam, normal orophraynx, normal external ear exam - Neck Neck exam: Present: normal inspection. Absent: tenderness, meningismus - Respiratory Respiratory exam: Present: normal lung sounds bilaterally. Absent: respiratory distress - Cardiovascular Cardiovascular Exam: Present: regular rate, normal rhythm - GI/Abdominal GI/Abdominal exam: Present: soft. Absent: tenderness - Extremities Exam Extremities exam: Present: normal capillary refill. Absent: pedal edema - Back Exam Back exam: Absent: CVA tenderness (R), CVA tenderness (L) - Neurological Exam Neurological exam: Present: alert, oriented X3, CN II-XII intact, normal gait. Absent: motor sensory deficit - Psychiatric Psychiatric exam: Present: normal affect, normal mood - Skin Skin exam: Present: warm, dry ED Course Vital Signs 03/02/21 03/02/21 03/02/21 15:11 15:15 15:31 Pulse Rate Respiratory Rate Blood Pressure 109/80 108/77 Blood Pressure [Left] O2 Sat by Pulse 96 95 97 Oximetry 03/02/21 15:36 Pulse Rate 87 Respiratory 13 Rate Blood Pressure Blood Pressure 115/73 [Left] O2 Sat by Pulse 97 Oximetry - Reevaluation(s) Reevaluation #1: 03/02/21 14:55 Labs were ordered. Old records reviewed. Reevaluation #2: 03/02/21 16:10 Labs are noted. Patient was ambulatory and subsequently discharged. ED Medical Decision Making - Lab Data Result diagrams: 03/02/21 15:13 03/02/21 15:13 Rhythm strip: Normal sinus rhythm without ectopy per monitor observe 10 seconds. - EKG Data -: EKG Interpreted by Me - EKG Data 03/02/21 16:10 EKG shows normal sinus rhythm With normal intervals. There is no ST elevation suggest infarct there is no ST depression suggestive of ischemia. There does not appear to be interval change from prior EKG. - Medical Decision Making Patient presents with a syncopal episode. There was some question as far seizure activity, but the patient does not believe he had any type of seizure. He states that he has passed out. He has passed out before. There is no evidence of dysrhythmia. He has no evidence of hypoglycemia. He does not have evidence of STEMI or NSTEMI. Patient is dehydrated based on hemoconcentration. Whether that contributed to the syncopal event is not known. At this time, he would like to go home. He feels comfortable. We have discussed the possibilities of syncope including seizure. He will be followed up by his regular physician. He has been invited to return for any problems. Critical Care Time: No Critical care attestation.: If time is entered above; I have spent that time in minutes in the direct care of this critically ill patient, excluding procedure time. ED Disposition Clinical Impression: Dehydration, Syncope and collapse Syncope Qualifiers: Syncope type: unspecified Qualified Code(s): R55 - Syncope and collapse Disposition: 01 HOME / SELF CARE / HOMELESS Is pt being admited?: No Condition: Stable Instructions: Rehydration, Adult, Syncope, Syncope (ED) Additional Instructions: Drink any water. Continue home medication. Return for problems. Follow-up with your regular doctor for recheck and further management. Rest at home. Referrals: PRIMARY CARE, [Referring] - 3-5 Days CYN FAIR MD [Staff Physician] - 3-5 Days
[2021-03-02 15:21] LABS: Hematocrit 45.8 % (35.5-45.6); Hemoglobin 16.1 gm/dl (11.8-15.2); Mean Corpuscular HGB Conc 35 % (32-34); Mean Corpuscular Volume 85 fl (84-94); Platelet Count 283 K/mm3 (140-440); Red Blood Count 5.42 M/mm3 (3.65-5.03); Red Cell Distribution Width 14.1 % (13.2-15.2)
[2021-03-02 15:37] VITALS: BP 115/73
[2021-03-02 15:37] LABS: BUN/Creatinine Ratio 11; Blood Urea Nitrogen 9 mg/dL (9-20); Calcium 9.4 mg/dL (8.4-10.2); Hemolysis Index 16
--- NOTE | 2021-03-06 10:12 | Electrocardiograph Report ---
[facility] Test Date: 2021-03-02 Test Time: 16:18:32 Pat Name: BISHOP GREEN Department: Room: Gender: M [employer]ak[employer] T[employer]: STEPHON : 1970 Requested By: ALYSIA STARKS Order Number: [id number] Reading MD: Bg Mccabe Measurements Intervals Badin Rate: 77 P: 60 ID: [id number] QRS: 10 QRSD: 106 T: -21 QT: 367 QTc: 414 Interpretive Statements Sinus rhythm Inferior infarct, age indeterminate No previous ECG available for comparison Electronically Signed On 03-06-2021 10:12:08 EDT by Bg Mccabe
== END 2021-03-02 16:30 | disposition home or self-care (01) ==
LOC: ED 14:11
DX: R55 Syncope and collapse (principal); E86.0 Dehydration; I11.0 Hypertensive heart disease with heart failure; I50.9 Heart failure, unspecified; E11.8 Type 2 diabetes mellitus with unspecified complications; K76.0 Fatty (change of) liver, not elsewhere classified; M19.90 Unspecified osteoarthritis, unspecified site; K21.9 Gastro-esophageal reflux disease without esophagitis; J44.9 Chronic obstructive pulmonary disease, unspecified; Z90.89 Acquired absence of other organs; Z98.890 Other specified postprocedural states; Z87.891 Personal history of nicotine dependence
CPT/HCPCS: 36415; 80048; 84484; 85027; 93005; 99283

== ENCOUNTER 2021-03-05 11:39 | Day surgery (SDC) | payer OTHER ==
--- NOTE | 2021-03-03 16:14 | Anesthesia Consultation ---
Anesthesia Consult and Med Hx Date of service: 03/05/21 - Airway Anesthetic Teeth Evaluation: Good ROM Head & Neck: Adequate Mental/Hyoid Distance: Adequate Mallampati Class: Class I Intubation Access Assessment: Good - Pre-Operative Health Status ASA Pre-Surgery Classification: ASA4 Proposed Anesthetic Plan: General - Pulmonary Hx Smoking: Yes (STOPPED X 28 DAYS- 1PPD X 30YRS) Hx Asthma: No COPD: Yes Hx Pneumonia: No Hx Sleep Apnea: Yes (DX SLEEP APNEA , NO CPAP USE.) - Cardiovascular System Hx Hypertension: Yes (X 6 YRS) Hx Heart Attack/AMI: Yes (2020 with two stents. [facility] and ok) - Central Nervous System Hx Neuromuscular Disorder: Yes (Left foot numbness. Shoulder pain) CVA: Yes Hx Back Pain: Yes (NECK AND LOW BACK PAIN WITH LEFT LEG PAIN) Hx Psychiatric Problems: Yes (PTSD/Anxiety/Depression) - Gastrointestinal Hx Ulcer: Yes (Hx Gastritis and ulcer) Hx Gastroesophageal Reflux Disease: Yes - Endocrine Hx End Stage Renal Disease: No Hx Liver Disease: Yes (FATTY LIIVER) Hx Non-Insulin Dependent Diabetes: Yes - Hematic Hx Anemia: No - Other Systems Hx Substance Use: Yes (CHRONIC MARIJUANA ABUSE) Hx Cancer: No Hx Obesity: Yes - Additional Comments Anesthesia Medical History Comments: Went to ER yesterday for syncope. Believed to be from dehydration. Decreased activity level because of ortho issues
[~2021-03-05 11:39] MED LIST: ACETAMINOPHEN 500 MG TAB PO ONE; CELECOXIB 200 MG CAP PO NR; LACTATED RINGERS 1,000 ML IV SCH; MAGNESIUM OXIDE 400 MG TAB PO ONE; MIDAZOLAM 2 MG/2 ML INJ IV NR; SODIUM CHLORIDE 0.9% IRR 1,500 ML BOTTLE IR ONE
--- NOTE | 2021-03-05 12:09 | Anesthesia Day of Surgery ---
Anesthesia Day of Surgery - Day of Surgery Patient Examined: Yes Patient H&P Reviewed: Yes Patient is NPO: Yes
[2021-03-05] MEDS ORDERED: ACETAMINOPHEN 500 MG TAB ONE (12:16)
[2021-03-05] MEDS ORDERED: MAGNESIUM OXIDE 400 MG TAB PO ONE (12:18)
[2021-03-05] MEDS ORDERED: BUPIVACAINE/PF (0.25%) 2.5 MG/ML 30 ML VIAL INFILTRATI ONE (12:47)
[2021-03-05] MEDS ORDERED: LIDOCAINE (1%) 10 MG/1 ML VIAL 20 ML MDV ONE (12:47)
[2021-03-05] MEDS ORDERED: HYDROmorphone 1 MG/1 ML INJ IV PRN (13:00)
[2021-03-05] MEDS ORDERED: ONDANSETRON 4 MG/2 ML INJ IV PRN (13:00)
[2021-03-05] MEDS ORDERED: LIDOCAINE MPF (2%) 20 MG/1 ML VIAL 5 ML ONE (13:29)
[2021-03-05] MEDS ORDERED: ONDANSETRON 4 MG/2 ML INJ ONE ×3 (13:29→14:30)
[2021-03-05] MEDS ORDERED: HYDROmorphone 1 MG/1 ML INJ ONE (13:29)
[2021-03-05] MEDS ORDERED: propofoL 200 MG/20 ML VIAL IV ONE (13:32)
--- NOTE | 2021-03-05 13:54 | Post Operative Note ---
Pre-op diagnosis: l hydrocele large Post-op diagnosis: same Findings: as above Procedure: left hydrocelectomy Anesthesia: GETA Surgeon: ROMMEL FENTON Estimated blood loss: minimal Pathology: list (sac) Specimen disposition: to lab, given to patient/family Condition: stable Disposition: PACU
--- NOTE | 2021-03-05 13:55 | Discharge Summary ---
Short Stay Discharge Plan Activity: other (no straining ) Weight Bearing Status: Full Weight Bearing Diet: low fat, low cholesterol, low salt Wound: change dressing Special Instructions: other (f/u 1 day drain removal ) Durable Medical Equipment Needed Upon Discharge: other (miller ) Follow up with: [facility] [Primary Care Provider] - 7 Days
[2021-03-05] MEDS ORDERED: MIDAZOLAM 2 MG/2 ML INJ IV NR (14:00)
[2021-03-05] MEDS ORDERED: KETOROLAC 30 MG/1 ML INJ ONE (14:12)
[2021-03-05] MEDS ORDERED: dexAMETHasone 20 MG/5 ML VIAL ONE (14:12)
[2021-03-05] MEDS ORDERED: SODIUM CHLORIDE 0.9% IRR 1,500 ML BOTTLE IR ONE (15:16)
--- NOTE | 2021-03-05 16:01 | Operative Report ---
DATE OF SURGERY: 03/05/2021 PREOPERATIVE DIAGNOSES: Large tender left hydrocele, smoker, chronic obstructive pulmonary disease. POSTOPERATIVE DIAGNOSES: Large tender left hydrocele, smoker, chronic obstructive pulmonary disease. PROCEDURES: Left hydrocelectomy with biopsy of testis with tunica scar frozen section. SURGEON: Dr. Beck. ANESTHESIA: General. FINDINGS: This is a gentleman with a very painful left hemiscrotum. This fluid was quite prominent. He now presents for drainage. All the risks and implications discussed. DESCRIPTION OF PROCEDURE: The patient was brought to the operating room and placed on the operating table. Following induction of anesthesia, placed in the supine position, prepped and draped in usual sterile fashion. An oblique incision was made over the scrotum and carried to the tunica vaginalis. This was dissected free. The small vessels were tied or cauterized. The tunica was opened. There was approximately 120 mL of clear yellow fluid. We excised the tunica without difficulty and oversewn it on each side. At this point, we noticed that on the medial aspect of the tunica, there was a little nodule superficial, nothing in the testis. His ultrasound reported normal, but we felt obliged to excise and frozen section. Frozen section shows severe fibrosis. This was then oversewn and closed. It should be noted the patient had some oozing from just the surrounding fascial layers, which were constantly tied and cauterized as needed. The Stephanie placed in the dependent portion. We then oversewed the fascia and skin with 2-0 and 3-0 chromic. The patient tolerated the procedure well. ESTIMATED BLOOD LOSS: Minimal, but there was an oozing situation that had to be watched with no distinct arterial bleeder. The patient tolerated the procedure well and brought to recovery in stable condition. Estimated blood loss 10-20 mL TID: [id number] RECEIPT: [id number] Crystal/KAYLA
[2021-03-05] MEDS: HYDROmorphone 1 MG/1 ML INJ IV PRN ×4 (16:20→16:55)
--- NOTE | 2021-03-05 17:27 | Post Anesthesia Evaluation ---
- Post Anesthesia Evaluation Patient Participated: Yes Airway Patent: Yes Stable Respiratory Function: Yes Nausea/Vomiting: No Temp > 96.8F: Yes Pain Manageable: Yes Adequeate Hydration: Yes Anesthesia Complications: No Block Receding Appropriately: Not Applicable Patient on Ventilator: No
[2021-03-05 18:02] VITALS: BP 158/90
== END 2021-03-05 17:35 | disposition home or self-care (01) ==
LOC: OR 11:39
PROVIDERS: ATTEND Urology
DX: N43.3 Hydrocele, unspecified (principal); Z20.822 Contact with and (suspected) exposure to COVID-19; J44.9 Chronic obstructive pulmonary disease, unspecified; I10 Essential (primary) hypertension; I25.2 Old myocardial infarction; E11.9 Type 2 diabetes mellitus without complications; F41.9 Anxiety disorder, unspecified; F32.9 Major depressive disorder, single episode, unspecified; K21.9 Gastro-esophageal reflux disease without esophagitis; K76.0 Fatty (change of) liver, not elsewhere classified; E66.9 Obesity, unspecified; F17.210 Nicotine dependence, cigarettes, uncomplicated; Z86.73 Personal history of transient ischemic attack (TIA), and cerebral infarction without residual deficits; Z79.82 Long term (current) use of aspirin; Z79.899 Other long term (current) drug therapy; Z98.890 Other specified postprocedural states
CPT/HCPCS: 55040; 82962; 88302; 88305; 88331; J1100; J1170; J1885; J2250; J2405; J2704; J7120; U0003; J0690